=== PATIENT | male | born 1935 | race Caucasian/White ===

== ENCOUNTER → 2021-06-07 09:57 | Outpatient (BNVA) | payer MEDICARE, OTHER, SELFPAY | PROVIDERS: PCP Internal Medicine; Visit Provider Urology | DX: C61 Malignant neoplasm of prostate (principal) | CPT/HCPCS: 99202 ==

== ENCOUNTER → 2021-08-29 10:45 | Outpatient (REF) | payer MEDICARE, OTHER, SELFPAY ==
--- NOTE | ~2021-08-29 | NM_ITS ---
EXAMINATION: NM BONE SCAN OF THE WHOLE BODY CLINICAL INFORMATION: Malignant neoplasm of the prostate. COMPARISON: There are no studies to compare. TECHNIQUE: Multiple gamma scintillation camera images of the whole body were performed 2.5 hours following the intravenous administration of 30 mCi Tc-99m MDP. FINDINGS: In the head, unremarkable. In the thoracic cage and upper extremities, there is some uptake in the elbows as well as the wrist bones and phalangeal regions which is likely degenerative in nature. In the spine, there is some uptake which is mild at D9 near the costovertebral junction posterior. There is also uptake at T12-L1 and L1-L2 as well as L3-L4. Scoliosis is noted. In the pelvis, unremarkable. In the lower extremities, there is some uptake about the right greater than left knee. There are knee prostheses here. Uptake around the central component of the tibial region, most noted on the right. More superior uptake may be degeneration at the patellofemoral articulation. There is uptake in the tarsal bones laterally of the right foot. No other definite bony abnormalities are noted. The urinary bladder and faint visualization of both kidneys is noted. NM/NM bone scan whole body IMPRESSION: No convincing scintigraphic evidence metastatic disease. There are no other films to compare. Uptake as described in the lumbar greater than thoracic spine may well be degenerative in nature. Recommend plain films to correlate. Otherwise, some uptake about the right knee, and note is made of uptake occurring around the tibial component of the right knee prosthesis. An element of loosening or infection cannot be excluded. Intense uptake in the tarsal region of the right foot. Correlation recommended clinically. Consider plain films here as well.
== END ==
LOC: HO.NUCMED 10:45
PROVIDERS: Visit Provider Urology
DX: C61 Malignant neoplasm of prostate (principal); C79.51 Secondary malignant neoplasm of bone
CPT/HCPCS: 78306; A9503

== ENCOUNTER → 2021-08-30 10:31 | Outpatient (BNVA) | payer MEDICARE, OTHER, SELFPAY | PROVIDERS: PCP Family Medicine; Visit Provider Urology | DX: C61 Malignant neoplasm of prostate (principal) | CPT/HCPCS: Q3014 ==

== ENCOUNTER → 2021-12-20 09:46 | Outpatient (BNVA) | payer MEDICARE, OTHER, SELFPAY | PROVIDERS: PCP Internal Medicine; Visit Provider Urology | DX: C61 Malignant neoplasm of prostate (principal) | CPT/HCPCS: Q3014 ==

== ENCOUNTER → 2022-05-11 11:18 | Outpatient (BNVA) | payer MEDICARE, OTHER, SELFPAY | PROVIDERS: PCP Internal Medicine; Visit Provider Urology | DX: C61 Malignant neoplasm of prostate (principal); N40.1 Benign prostatic hyperplasia with lower urinary tract symptoms; R35.1 Nocturia; R35.0 Frequency of micturition | CPT/HCPCS: Q3014 ==

== ENCOUNTER → 2022-06-20 15:25 | Outpatient (BNVA) | payer MEDICARE, OTHER, SELFPAY | PROVIDERS: PCP Internal Medicine; Visit Provider Urology | DX: C61 Malignant neoplasm of prostate (principal); N40.1 Benign prostatic hyperplasia with lower urinary tract symptoms; Z79.899 Other long term (current) drug therapy; N13.8 Other obstructive and reflux uropathy | CPT/HCPCS: 99212 ==

== ENCOUNTER 2023-03-29 09:48 | Outpatient (AMB) | payer MEDICARE, OTHER, SELFPAY ==
--- NOTE | 2023-03-29 09:55 | A.OFFVIS_ITS ---
Intake Intake Visit Reasons: 6m/PSA Intake Note: Patient is Present for Follow Up PSA Urology Medication: Finasteride Antibiotic Allergies:None Blood Thinners: None PSA: 03/20/2023 10.10 Allergies No Known Allergies Allergy (Verified 12/18/21 10:13) HPI HPI Comments History of Present Illness Details Mr Cowan is a very pleasant male. He is a patient of Dr Jones. He is seen for the following urologic conditions. - prostate cancer Slow rise in PSA Known prostate cancer Plan bone scan - last performed August 2021 Discussed possible 18 month course of GnRH Progressive urinary symptoms - Nocturia with postvoid dribbling Continue terazosin 5 mg PSA 05/09 20 MRI - 1.4 cm PI-RADS 4 posterolateral periph eral zone midgland and apex with deformation of contour on left. - 97 g prostate Prostate cancer:? Diagnosed 2007 [place] 3 + 3, repeat biopsy 03/29 cores ? Prostate cancer was diagnosed?[address] Abrams.? Diagnosis was reached by?needle biopsy, for elevated PSA, PSA at diagnosis 10.75, size at TRUS 100cc ? The [place] grade is?3+3 = 6, 03/29 core 2007 left mid gland ?3+3 = 6 03/29 cores 08/2012, left mid gland lateral ? TNM Classification of Malignant Tumours (TNM)?T1c.? The D'Jacob (NCCN) risk category is?Intermediate Risk (PSA 10-20, Gl 7, T2) ? Initial therapy included?Primary treatment - Observation ? Recent labs included?a testosterone 12/31 14 ?07/02 - a PSA (prostate-specific antigen) 7.1, 02/01 6.1 F 19%, 08/02 5.6, 02/02 7.3, 06/06 21, 08/06 10.5, 01/06 7.3, 05/10 8.5, 04/10 10.1 Imaging - 09/06 bone scan no evidence of disease ? Therapeutic plan:? - remain on finasteride [facility] Medical History Dysuria Chronic back pain Coronary artery disease OA (osteoarthritis) GERD (gastroesophageal reflux disease) Straining to void Benign prostatic hyperplasia with lower urinary tract symptoms H/O urinary retention Surgical History History of surgery Review of Systems Const Denies chills and Denies fever(s) Card Reports no additional complaints and Denies syncope Resp Denies cough GI Denies abdominal pain and Denies heartburn Reports as per HPI and Denies change in libido Neuro Denies syncope Psych Denies change in libido Endo Denies change in libido Physical Exam Const General: cooperative, healthy appearing, comfortable and no acute distress Orientation/consciousness: patient oriented x3 HEENT Face and sinus: Yes normal facial exam Mouth: moist mucous membranes Neck Neck: Yes normal visual inspection, Yes full ROM and Yes trachea midline Chest Chest palpation & inspection: normal inspection of the chest Resp Effort & Inspection: normal respiratory effort, able to speak in complete sentences and no respiratory distress GI Inspection: Yes normal to inspection Back/Spine/Pelvis Cervical Spine: normal cervical lordosis Thoracic/Lumbar Spine: thoracic and lumbar spine normal to inspection Skin General skin exam: no rashes or lesions noted Neuro General: patient oriented x3, gait normal, tone normal and moves all extremities Extrem General: Yes normal to inspection and Yes capillary refill normal Assessment & Plan Assessment & Plan (1) Benign prostatic hyperplasia with lower urinary tract symptoms: Code(s): N40.1 - Benign prostatic hyperplasia with lower urinary tract symptoms (2) Prostate cancer: Code(s): C61 - Malignant neoplasm of prostate Plan Bone scan Four week tele visit Possible plan for GnRH Orders: Orders NM bone scan whole body Today C61 - Malignant neoplasm of prostate, C79.51 - Secondary malignant neoplasm of bone Patient Instructions: Imaging studies, laboratory and physical exam results were discussed and reviewed in detail. No major barriers to patient understanding were identified. An opportunity to ask questions regarding the treatment plan was provided. All questions were answered. The patient expressed understanding and agreement with the above treatment plan. The patient is aware they should contact our office by phone for worsening of their current condition or the appearance of new urologic symptoms. Compliance is encouraged with any medications and followup testing that is ordered. It is a privilege to participate in the urologic care of your patient. If you have any questions or concerns regarding treatment for the above conditions, or other urologic issues, please do not hesitate to contact me. The office telephone contact is [phone]. This note is constructed using voice recognition software. While every effort has been made to ensure accuracy structures technician errors may have been included. Yours sincerely, Dr Omega Martins MD, KAMERON [facility] - Urology Providers of Expert, Compassionate Care for the Genitourinary System Coding Level of Care Code Est Pt Level 4 (48835) Diagnoses Benign prostatic hyperplasia with lower urinary tract symptoms N40.1 Prostate cancer C61
== END 2023-03-29 10:22 | disposition home or self-care (01) ==
PROVIDERS: PCP Internal Medicine; Visit Provider Urology
DX: N40.1 Benign prostatic hyperplasia with lower urinary tract symptoms (principal); C61 Malignant neoplasm of prostate
CPT/HCPCS: 99214

== ENCOUNTER → 2023-03-29 09:48 | Outpatient (BNVA) | payer MEDICARE, OTHER, SELFPAY | PROVIDERS: PCP Internal Medicine; Visit Provider Urology | DX: N40.1 Benign prostatic hyperplasia with lower urinary tract symptoms (principal); R35.1 Nocturia; C61 Malignant neoplasm of prostate; Z79.899 Other long term (current) drug therapy | CPT/HCPCS: 99212 ==

== ENCOUNTER → 2023-05-10 09:39 | Outpatient (REF) | payer MEDICARE, OTHER, SELFPAY ==
--- NOTE | ~2023-05-10 | NM_ITS ---
EXAMINATION: NM BONE SCAN OF THE WHOLE BODY CLINICAL INFORMATION: Secondary malignant neoplasm of bone. COMPARISON: Bone scan 08/29/2021. TECHNIQUE: Multiple gamma scintillation camera images of the whole body were performed 2.5 hours following the intravenous administration of 28 mCi Tc-99m MDP. FINDINGS: In the head, no abnormal activity seen in the skull or the calvarium. In the thoracic cage and upper extremities, no abnormal activity seen in the thoracic cage. There is mild activity seen in bilateral elbows, greater on the left than the right. Mild increased activity is also visualized in bilateral wrists bones. There is solitary lymph node activity seen medial to the right elbow joint, likely secondary to isotropic extravasation at the injection site, right wrist. In the spine, mild activity is seen in T9, T12-L1, L1-L2 and L2-L4 endplates likely related to degenerative arthritis. There is mild levoscoliosis of dorsolumbar spine. In the pelvis, no abnormal activity seen. In the lower extremities, there is bilateral knee prosthesis activity, slightly greater in the right knee, secondary to knee prosthesis. [id number]-[id number] metabolic activity seen in the right mid tarsal bone. It is stable compared to last bone scan. No other definite bony abnormalities are noted. The urinary bladder and faint visualization of both kidneys are noted. NM/NM bone scan whole body IMPRESSION: Degenerative arthritic changes throughout the lower dorsal and lumbar spine including bilateral elbow joints, right wrist and right tarsal bone. There is no suspicion for any new or metastatic bone activity at this time. Moderate increased activity of right knee prosthesis compared to left knee likely secondary to increased bone activity from prosthesis in the proximal tibia. However, it is stable compared to last study from 08/29/2021.
== END ==
LOC: HO.NUCMED 09:39
PROVIDERS: Visit Provider Urology
DX: C61 Malignant neoplasm of prostate (principal); C79.51 Secondary malignant neoplasm of bone
CPT/HCPCS: 78306; A9503

== ENCOUNTER 2023-05-17 08:09 | Outpatient (AMB) | payer MEDICARE, OTHER, SELFPAY ==
--- NOTE | 2023-05-17 08:09 | A.OFFVIS_ITS ---
Intake Intake Visit Reasons: 1M Bone Scan(set)Confirmed Intake Note: Patient presents today for a telehealth follow-up Meds- Finasteride Allergies to Antibiotic- No Known Allergies Blood Thinner- None Baton Twirler Required: No Allergies No Known Allergies Allergy (Verified 05/17/23 08:11) HPI HPI Comments History of Present Illness Details Mr Cowan is a very pleasant male. He is a patient of Dr Jones. He is seen for the following urologic conditions. - prostate cancer Telemedicine Evaluation 15 min Consultation Doximity Juanjo Video attempted Discussed bone scan result Recent diagnosis of squamous cell carcinoma Recent bone scan negative. Positive for arthritis. Current PSA 10 Six-month follow-up PSA Slow rise in PSA Known prostate cancer Discussed possible 18 month course of GnRH Progressive urinary symptoms - Nocturia with postvoid dribbling Continue terazosin 5 mg PSA 05/09 20 MRI - 1.4 cm PI-RADS 4 posterolateral periph eral zone midgland and apex with deformation of contour on left. - 97 g prostate Prostate cancer:? Diagnosed 2007 [place] 3 + 3, repeat biopsy 03/29 cores ? Prostate cancer was diagnosed?[address] Abrams.? Diagnosis was reached by?needle biopsy, for elevated PSA, PSA at diagnosis 10.75, size at TRUS 100cc ? The [place] grade is?3+3 = 6, 03/29 core 2007 left mid gland ?3+3 = 6 03/29 cores 08/2012, left mid gland lateral ? TNM Classification of Malignant Tumours (TNM)?T1c.? The D'Jacob (NCCN) risk category is?Intermediate Risk (PSA 10-20, Gl 7, T2) ? Initial therapy included?Primary treatment - Observation ? Recent labs included?a testosterone 12/31 14 ?07/02 - a PSA (prostate-specific antigen) 7.1, 02/01 6.1 F 19%, 08/02 5.6, 02/02 7.3, 06/06 21, 08/06 10.5, 01/06 7.3, 05/10 8.5, 04/10 10.1 Imaging - 09/06 bone scan no evidence of disease - 04/10 bone scan positive for arthritis ? Therapeutic plan:? - remain on finasteride [facility] Medical History Dysuria Chronic back pain Coronary artery disease OA (osteoarthritis) GERD (gastroesophageal reflux disease) Straining to void Benign prostatic hyperplasia with lower urinary tract symptoms H/O urinary retention Surgical History History of surgery Review of Systems Const All systems reviewed & are unremarkable except as noted in HPI and below Reports no additional complaints Resp Reports no additional complaints GI Reports no additional complaints Reports as per HPI Musc Reports no additional complaints Physical Exam Telemedicine evaluation Appropriate responses Regular breathing rate and rhythm HEENT Head: Yes normal to inspection Ears: hearing grossly normal bilaterally Eyes General: appearance normal, both eyes and all related structures Neck Neck: Yes normal visual inspection Chest Chest palpation & inspection: normal inspection of the chest Resp Effort & Inspection: normal respiratory effort and able to speak in complete sentences Assessment & Plan Assessment & Plan (1) Prostate cancer: Code(s): C61 - Malignant neoplasm of prostate (2) Benign prostatic hyperplasia with lower urinary tract symptoms: Code(s): N40.1 - Benign prostatic hyperplasia with lower urinary tract symptoms Plan Six-month follow-up Orders: Orders PSA,Total (Free>4and<10) 6 Months C61 - Malignant neoplasm of prostate Patient Instructions: Imaging studies, laboratory and physical exam results were discussed and reviewed in detail. No major barriers to patient understanding were identified. An opportunity to ask questions regarding the treatment plan was provided. All questions were answered. The patient expressed understanding and agreement with the above treatment plan. The patient is aware they should contact our office by phone for worsening of their current condition or the appearance of new urologic symptoms. Compliance is encouraged with any medications and followup testing that is ordered. It is a privilege to participate in the urologic care of your patient. If you have any questions or concerns regarding treatment for the above conditions, or other urologic issues, please do not hesitate to contact me. The office telephone contact is [phone]. This note is constructed using voice recognition software. While every effort has been made to ensure accuracy grant coordinator errors may have been included. Yours sincerely, Dr Omega Martins MD, KAMERON [facility] - Urology Providers of Expert, Compassionate Care for the Genitourinary System Telehealth Telehealth Location of provider rendering services: practice address Location of patient: address on file Patient Identification confirmed using: Name, : Yes Telehealth method: video Patient verbally consented to treatment: Yes Patient verbally consented to billing insurance company: Yes Patient informed of any privacy concerns related to visit: Yes Coding Level of Care Code Tele Est Pt Level 3 (05367) Diagnoses Prostate cancer C61 Benign prostatic hyperplasia with lower urinary tract symptoms N40.1
== END 2023-05-17 09:21 | disposition home or self-care (01) ==
LOC: HO.HUSH 08:09
PROVIDERS: PCP Internal Medicine; Visit Provider Urology
DX: C61 Malignant neoplasm of prostate (principal); N40.1 Benign prostatic hyperplasia with lower urinary tract symptoms
CPT/HCPCS: 99213

== ENCOUNTER → 2023-05-17 08:09 | Outpatient (BNVA) | payer MEDICARE, OTHER, SELFPAY | PROVIDERS: PCP Internal Medicine; Visit Provider Urology ==

== ENCOUNTER 2023-11-05 09:26 | Outpatient (REF) | payer MEDICARE, OTHER, SELFPAY ==
[2023-11-05 11:52] LABS: PSA,Total (Free>4and<10) 9.27 ng/mL (0.00-4.00)
[2023-11-07 11:03] LABS: Free Prostate Spec Ag 1.5 ng/mL; Percent Free Prostate Spec Ag 18 % (calc) (>25); Prostate Specific Ag Total 8.3 ng/mL (< OR = 4.0)
== END 2023-11-05 09:27 | disposition home or self-care (01) ==
LOC: HO.LAB 09:26
PROVIDERS: PCP Internal Medicine; Visit Provider Urology
DX: Z12.5 Encounter for screening for malignant neoplasm of prostate (principal); C61 Malignant neoplasm of prostate
CPT/HCPCS: 36415; 84153; 84154

== ENCOUNTER 2023-11-15 08:33 | Outpatient (AMB) | payer MEDICARE, OTHER, SELFPAY ==
--- NOTE | 2023-11-15 08:33 | MHC.OFFVIS ---
Intake Visit Reasons: 6m/PSA(set) Intake Note: Patient is present for 6m f/u PSA Urology Medication:FINASTERIDE Antibiotic Allergy:NONE Blood Thinner:NONE Reserve Officer Required: No Allergies No Known Allergies Allergy (Verified 11/15/23 08:34) HPI Comments Details: Mr Cowan is a very pleasant male. He is a patient of Dr Jones. He is seen for the following urologic conditions. - prostate cancer Six-month follow-up PSA Slow rise in PSA Known prostate cancer Discussed possible 18 month course of GnRH Now with progressive macular degeneration Discussed likelihood he will go blind before he does prostate cancer Progressive urinary symptoms - Nocturia with postvoid dribbling Continue terazosin 5 mg PSA 05/09 21, 11/08 8.3 18% MRI - 1.4 cm PI-RADS 4 posterolateral peripheral zone midgland and apex with deformation of contour on left. - 97 g prostate Prostate cancer:? Diagnosed 2007 [place] 3 + 3, repeat biopsy 03/29 cores ? Prostate cancer was diagnosed?[address] Abrams.? Diagnosis was reached by?needle biopsy, for elevated PSA, PSA at diagnosis 10.75, size at TRUS 100cc ? The [place] grade is?3+3 = 6, 03/29 core 2007 left mid gland ?3+3 = 6 03/29 cores 08/2012, left mid gland lateral ? TNM Classification of Malignant Tumours (TNM)?T1c.? The D'Jacob (NCCN) risk category is?Intermediate Risk (PSA 10-20, Gl 7, T2) ? Initial therapy included?Primary treatment - Observation ? Recent labs included?a testosterone 12/31 14 ?07/02 - a PSA (prostate-specific antigen) 7.1, 02/01 6.1 F 19%, 08/02 5.6, 02/02 7.3, 06/06 21, 08/06 10.5, 01/06 7.3, 05/10 8.5, 04/10 10.1 Imaging - 05/11 Recent bone scan negative. Positive for arthritis. - 09/06 bone scan no evidence of disease - 04/10 bone scan positive for arthritis ? Therapeutic plan:? - remain on finasteride PFSH Medical History Dysuria Chronic back pain Coronary artery disease OA (osteoarthritis) GERD (gastroesophageal reflux disease) Straining to void Benign prostatic hyperplasia with lower urinary tract symptoms H/O urinary retention Surgical History History of surgery Review of Systems Const Denies chills and Denies fever(s) Card Reports no additional complaints and Denies syncope Resp Denies cough GI Denies abdominal pain and Denies heartburn Reports as per HPI and Denies change in libido Neuro Denies syncope Psych Denies change in libido Endo Denies change in libido Physical Exam Const General: cooperative, healthy appearing, comfortable and no acute distress Orientation/consciousness: patient oriented x3 HEENT Face and sinus: Yes normal facial exam Mouth: moist mucous membranes Neck Neck: Yes normal visual inspection, Yes full ROM and Yes trachea midline Chest Chest palpation & inspection: normal inspection of the chest Resp Effort & Inspection: normal respiratory effort, able to speak in complete sentences and no respiratory distress GI Inspection: Yes normal to inspection Back/Spine/Pelvis Cervical Spine: normal cervical lordosis Thoracic/Lumbar Spine: thoracic and lumbar spine normal to inspection Skin General skin exam: no rashes or lesions noted Neuro General: patient oriented x3, gait normal, tone normal and moves all extremities Extrem General: Yes normal to inspection and Yes capillary refill normal Results AMB Urinalysis, Automated UA Leukoctes 0 Familia/uL Last Edit by XIOMARA Jay on 11/15/23 08:56 UA Nitrite Negative Last Edit by XIOMARA Jay on 11/15/23 08:56 UA Urobilinogen 0.2 mg/dL Last Edit by XIOMARA Jay on 11/15/23 08:56 UA Protein 15 mg/dL Last Edit by XIOMARA Jay on 11/15/23 08:56 UA pH 6.0 Last Edit by XIOMARA Jay on 11/15/23 08:56 UA Blood 0 Rip/uL Last Edit by XIOMARA Jay on 11/15/23 08:56 UA Specific [place] 1.030 Last Edit by XIOMARA Jay on 11/15/23 08:56 UA Ketone Negative Last Edit by XIOMARA Jay on 11/15/23 08:56 UA Bilirubin 0 mg/dL Last Edit by XIOMARA Jay on 11/15/23 08:56 UA Glucose 0 mg/dL Last Edit by XIOMARA Jay on 11/15/23 08:56 Assessment & Plan Assessment & Plan (1) Nocturia more than twice per night: Code(s): R35.1 - Nocturia Category: Medical (2) Prostate cancer: Code(s): C61 - Malignant neoplasm of prostate Category: Medical Plan Six-month follow-up PSA Orders: Orders PSA,Total (Free>4and<10) 6 Months C61 - Malignant neoplasm of prostate AMB Urinalysis Automated Today Z13.9 - Encounter for screening, unspecified Patient Instructions: Imaging studies, laboratory and physical exam results were discussed and reviewed in detail. No major barriers to patient understanding were identified. An opportunity to ask questions regarding the treatment plan was provided. All questions were answered. The patient expressed understanding and agreement with the above treatment plan. The patient is aware they should contact our office by phone for worsening of their current condition or the appearance of new urologic symptoms. Compliance is encouraged with any medications and followup testing that is ordered. It is a privilege to participate in the urologic care of your patient. If you have any questions or concerns regarding treatment for the above conditions, or other urologic issues, please do not hesitate to contact me. The office telephone contact is [phone]. This note is constructed using voice recognition software. While every effort has been made to ensure accuracy sales floor manager errors may have been included. Yours sincerely, Dr Omega Martins MD, KAMERON [facility] - Urology Providers of Expert, Compassionate Care for the Genitourinary System Coding Level of Care Code Est Pt Level 3 (75551) Diagnoses Nocturia more than twice per night R35.1 Prostate cancer C61
== END 2023-11-15 09:28 | disposition home or self-care (01) ==
PROVIDERS: PCP Internal Medicine; Visit Provider Urology
DX: R35.1 Nocturia (principal); C61 Malignant neoplasm of prostate; Z13.9 Encounter for screening, unspecified
CPT/HCPCS: 99213

== ENCOUNTER → 2023-11-15 08:33 | Outpatient (BNVA) | payer MEDICARE, OTHER, SELFPAY | PROVIDERS: PCP Internal Medicine; Visit Provider Urology | DX: C61 Malignant neoplasm of prostate (principal); R35.1 Nocturia | CPT/HCPCS: 81003; 99212 ==

== ENCOUNTER 2024-06-19 12:26 | Outpatient (REF) | payer MEDICARE, OTHER, SELFPAY ==
[2024-06-19 13:59] LABS: PSA,Total (Free>4and<10) 8.59 ng/mL (0.00-4.00)
[2024-06-22 10:09] LABS: Free Prostate Spec Ag 1.6 ng/mL; Percent Free Prostate Spec Ag 19 % (calc) (>25); Prostate Specific Ag Total 8.4 ng/mL (< OR = 4.0)
== END 2024-06-19 12:27 | disposition home or self-care (01) ==
LOC: HO.LAB 12:26
PROVIDERS: PCP Internal Medicine; Visit Provider Urology
DX: C61 Malignant neoplasm of prostate (principal); Z12.5 Encounter for screening for malignant neoplasm of prostate
CPT/HCPCS: 36415; 84153; 84154

== ENCOUNTER 2024-07-16 09:58 | Outpatient (AMB) | payer MEDICARE, OTHER, SELFPAY ==
--- NOTE | 2024-07-16 09:59 | A.OFFVIS_ITS ---
Intake Visit Reasons: follow up/PSA Intake Note: Patient is present for a follow up/ PSA Urology Medication:FINASTERIDE Antibiotic Allergy:NONE Blood Thinner:NONE Cylinder Press Feeder Required: No Allergies No Known Allergies Allergy (Verified 11/15/23 08:34) HPI Comments Details: Mr Cowan is a very pleasant male. He is a patient of Dr Jones. He is seen for the following urologic conditions. - prostate cancer Six-month follow-up PSA PSA 8.4 free PSA 19% - remains in target range Discussed possible 18 month course of GnRH Prior discussion regarding progressive macular degeneration Discussed likelihood he will go blind before he does prostate cancer Progressive urinary symptoms - Nocturia with postvoid dribbling Continue terazosin 5 mg PSA 05/09 21, 11/08 8.3 18%, 07/10 8.4 19% MRI - 1.4 cm PI-RADS 4 posterolateral peripheral zone midgland and apex with deformation of contour on left. - 97 g prostate Prostate cancer:? Diagnosed 2007 [place] 3 + 3, repeat biopsy 03/29 cores ? Prostate cancer was diagnosed?[address] Abrams.? Diagnosis was reached by?needle biopsy, for elevated PSA, PSA at diagn osis 10.75, size at TRUS 100cc ? The [place] grade is?3+3 = 6, 03/29 core 2007 left mid gland ?3+3 = 6 03/29 cores 08/2012, left mid gland lateral ? TNM Classification of Malignant Tumours (TNM)?T1c.? The D'Jacob (NCCN) risk category is?Intermediate Risk (PSA 10-20, Gl 7, T2) ? Initial therapy included?Primary treatment - Observation ? Recent labs included?a testosterone 12/31 14 ?07/02 - a PSA (prostate-specific antigen) 7.1, 02/01 6.1 F 19%, 08/02 5.6, 02/02 7.3, 06/06 21, 08/06 10.5, 01/06 7.3, 05/10 8.5, 04/10 10.1 Imaging - 05/11 Recent bone scan negative. Positive for arthritis. - 6/22 bone scan no evidence of disease - 04/10 bone scan positive for arthritis ? Therapeutic plan:? - remain on finasteride PFS Medical History Dysuria Chronic back pain Coronary artery disease OA (osteoarthritis) GERD (gastroesophageal reflux disease) Straining to void Benign prostatic hyperplasia with lower urinary tract symptoms H/O urinary retention Surgical History History of surgery Review of Systems Const Denies chills and Denies fever(s) Card Reports no additional complaints and Denies syncope Resp Denies cough GI Denies abdominal pain and Denies heartburn Reports as per HPI and Denies change in libido Neuro Denies syncope Psych Denies change in libido Endo Denies change in libido Physical Exam Const General: cooperative, healthy appearing, comfortable and no acute distress Orientation/consciousness: patient oriented x3 HEENT Face and sinus: Yes normal facial exam Mouth: moist mucous membranes Neck Neck: Yes normal visual inspection, Yes full ROM and Yes trachea midline Chest Chest palpation & inspection: normal inspection of the chest Resp Effort & Inspection: normal respiratory effort, able to speak in complete sentences and no respiratory distress GI Inspection: Yes normal to inspection Back/Spine/Pelvis Cervical Spine: normal cervical lordosis Thoracic/Lumbar Spine: thoracic and lumbar spine normal to inspection Skin General skin exam: no rashes or lesions noted Neuro General: patient oriented x3, gait normal, tone normal and moves all extremities Extrem General: Yes normal to inspection and Yes capillary refill normal Assessment & Plan Assessment & Plan (1) Prostate cancer: Code(s): C61 - Malignant neoplasm of prostate Category: Medical Plan Continue Q six-month surveillance Orders: Orders PSA,Total (Free>4and<10) 6 Months C61 - Malignant neoplasm of prostate Patient Instructions: This note is constructed using voice recognition software. While every effort has been made to ensure accuracy blocker automatic errors may have been included. Imaging studies, laboratory and physical exam results were discussed and reviewed in detail. No major barriers to patient understanding were identified. An opportunity to ask questions regarding the treatment plan was provided. All questions were answered. The patient expressed understanding and agreement with the above treatment plan. The patient is aware they should contact our office by phone for worsening of their current condition or the appearance of new urologic symptoms. Compliance is encouraged with any medications and followup testing that is ordered. It is a privilege to participate in the urologic care of your patient. If you have any questions or concerns regarding treatment for the above conditions, or other urologic issues, please do not hesitate to contact me. The office telephone contact is [phone]. Sincerely, Dr Omega Martins MD, KAMERON [facility] - Urology Compassionate Specialist Care for the Genitourinary System Coding Level of Care Code Est Pt Level 3 (06146) Complex EM visit Add On G2211 Diagnoses Prostate cancer C61
--- OUTSIDE RECORDS SUMMARY | 2024-07-16 11:09 | XMS_ITS | Continuity of Care Document ---
Author Name [facility] Organization [facility] Care Team Providers Care Gas Appliance Mechanic Name Role Phone [facility] Unavailable Unavailable Medications Combined list of outpatient medications from Department of Defense and Veterans Affairs facilities.Medications provided include 1) outpatient medications from the last 15 months, and 2) patient-reported medications. Medication Details Route Status Patient Instructions Prescription Expires Prescription Number Last Dispense Date Ordering Provider Order Date Order Qty Source AMLODIPINE BESYLATE (AMLODIPINE BESYLATE), 5 MG, TABLET, ORAL, [facility], 1000 ea. BOTTLE Active [id number] 4 2023 90 Pharmac y Data Transac tion Service Facilit y ATORVASTATI N CALCIUM (atorvastat in calcium), 40 MG, TABLET, ORAL, [facility], 90 ea. BOTTLE Active [id number] 4 2023 90 Pharmac y Data Transac tion Service Facilit y FINASTERIDE (FINASTERID E), 5MG, TABLET, ORAL, [facility], 90 ea. BOTTLE Active [id number] 4 2023 90 Pharmac y Data Transac tion Service Facilit y LORAZEPAM (lorazepam) , 0.5 MG, TABLET, ORAL, [facility], 100 ea. BOTTLE Active [id number] 2023 30 Pharmac y Data Transac tion Service Facilit y LORAZEPAM (lorazepam) , 0.5 MG, TABLET, ORAL, [facility], 100 ea. BOTTLE Active [id number] 4 2023 30 Pharmac y Data Transac tion Service Facilit y METOPROLOL TARTRATE (metoprolol tartrate), 25 MG, TABLET, ORAL, ADVAGEN PHARMA, 500 ea. BOTTLE Active [id number] 4 2023 180 Pharmac y Data Transac tion Service Facilit y VALSARTAN (valsartan) , 160 MG, TABLET, ORAL, [facility], 90 ea. BOTTLE Active [id number] 4 2023 90 Pharmac y Data Transac tion Service Facilit y ZOLPIDEM TARTRATE (ZOLPIDEM TARTRATE), 5MG, TABLET, ORAL, [facility], 100 ea. BOTTLE Active [id number] 4 2023 28 Pharmac y Data Transac tion Service Facilit y Social History Combined list of available smoking, tobacco, and other social history from Department of Defense and Veterans Affairs facilities. Social History Type Response Date Comment [facility] e This section is an empty social history section. DoD
== END 2024-07-16 10:34 | disposition home or self-care (01) ==
LOC: HO.HUSH 09:58
PROVIDERS: PCP Internal Medicine; Visit Provider Urology
DX: C61 Malignant neoplasm of prostate (principal)
CPT/HCPCS: 99213; G2211

== ENCOUNTER → 2024-07-16 09:58 | Outpatient (BNVA) | payer MEDICARE, OTHER, SELFPAY | PROVIDERS: PCP Internal Medicine; Visit Provider Urology | DX: C61 Malignant neoplasm of prostate (principal) | CPT/HCPCS: 99212 ==

== ENCOUNTER 2025-02-01 11:53 | Outpatient (REF) | payer MEDICARE, OTHER, SELFPAY ==
[2025-02-01 13:48] LABS: PSA,Total (Free>4and<10) 9.13 ng/mL (0.00-4.00)
[2025-02-03 13:23] LABS: Free Prostate Spec Ag 1.5 ng/mL; Percent Free Prostate Spec Ag 16 % (calc) (>25)
== END 2025-02-01 11:54 | disposition home or self-care (01) ==
LOC: HO.LAB 11:53
PROVIDERS: PCP Internal Medicine; Visit Provider Urology
DX: C61 Malignant neoplasm of prostate (principal); Z12.5 Encounter for screening for malignant neoplasm of prostate
CPT/HCPCS: 36415; 84153; 84154

== ENCOUNTER 2025-02-04 09:13 | Outpatient (AMB) | payer MEDICARE, OTHER, SELFPAY ==
--- NOTE | 2025-02-04 09:13 | A.OFFVIS_ITS ---
Intake Visit Reasons: 6m/PSA Intake Note: Patient is present for a 6 MO follow up Urology Medication:FINASTERIDE Antibiotic Allergy:NONE Blood Thinner:NONE Labs done 02/01/25 :Total PSA 9.13 Menagerie Superintendent Required: No Accompanied by: Self / Same As Patient Allergies No Known Allergies Allergy (Verified 02/04/25 09:15) HPI Comments Details: Mr Cowan is a very pleasant male. He is a patient of Dr Jones. He is seen for the following urologic conditions. - prostate cancer Telemedicine Evaluation 15 min Consultation [email or web address] Juanjo Video Six-month follow-up PSA - remains under 10 His macular degeneration is now affected his ability to drive Recent diagnosis of CHF Prostate is maintaining stability Continue six-month follow-up Prior discussion regarding progressive macular degeneration Discussed likelihood he will go blind before he does prostate cancer Progressive urinary symptoms - Nocturia with postvoid dribbling Continue terazosin 5 mg PSA 05/09 21, 11/08 8.3 18%, 07/10 8.4 19%, 02/09 9.2 16% MRI - 1.4 cm PI-RADS 4 posterolateral peripheral zone midgland and apex with deformation of contour on left. - 97 g prostate Prostate cancer:? Diagnosed 2007 Darwin 3 + 3, repeat biopsy 03/29 cores ? Prostate cancer was diagnosed?[address] Abrams[address] Diagnosis was reached by?needle biopsy, for elevated PSA, PSA at diagnosis 10.75, size at TRUS 100cc ? The Darwin grade is?3+3 = 6, 03/29 core 2007 left mid gland ?3+3 = 6 03/29 cores 08/2012, left mid gland lateral ? TNM Classification of Malignant Tumours (TNM)?T1c.? The D'Jacob (NCCN) risk category is?Intermediate Risk (PSA 10-20, Gl 7, T2) ? Initial therapy included?Primary treatment - Observation ? Recent labs included?a testosterone 12/31 14 ?07/02 - a PSA (prostate-specific antigen) 7.1, 02/01 6.1 F 19%, 08/02 5.6, 02/02 7.3, 06/06 21, 08/06 10.5, 01/06 7.3, 05/10 8.5, 04/10 10.1 Imaging - 05/11 Recent bone scan negative. Positive for arthritis. - 09/06 bone scan no evidence of disease - 04/10 bone scan positive for arthritis ? Therapeutic plan:? - remain on finasteride PFSH Medical History Dysuria Chronic back pain Coronary artery disease OA (osteoarthritis) GERD (gastroesophageal reflux disease) Straining to void Benign prostatic hyperplasia with lower urinary tract symptoms H/O urinary retention Surgical History History of surgery Review of Systems Const All systems reviewed & are unremarkable except as noted in HPI and below Reports no additional complaints Resp Reports no additional complaints GI Reports no additional complaints Reports as per HPI Musc Reports no additional complaints Physical Exam Telemedicine evaluation Appropriate responses Regular breathing rate and rhythm HEENT Head: Yes normal to inspection Ears: hearing grossly normal bilaterally Eyes General: appearance normal, both eyes and all related structures Neck Neck: Yes normal visual inspection Chest Chest palpation & inspection: normal inspection of the chest Resp Effort & Inspection: normal respiratory effort and able to speak in complete sentences Telehealth Telehealth Telehealth Platform: [email or web address] Location of provider rendering services: practice address Location of patient: address on file Patient Identification confirmed using: Name, : Yes Telehealth method: video Patient verbally consented to treatment: Yes Patient verbally consented to billing insurance company: Yes Patient informed of any privacy concerns related to visit: Yes Minutes spent on Phone/Video with Pt.: 15 Assessment & Plan Assessment & Plan (1) Prostate cancer: Code(s): C61 - Malignant neoplasm of prostate Category: Medical (2) Benign prostatic hyperplasia with lower urinary tract symptoms: Code(s): N40.1 - Benign prostatic hyperplasia with lower urinary tract symptoms Category: Medical (3) Nocturia more than twice per night: Code(s): R35.1 - Nocturia Category: Medical Plan Six-month follow-up repeat lab Orders: Orders PSA,Total (Free>4and<10) 6 Months C61 - Malignant neoplasm of prostate Medications: Refilled finasteride 5 mg PO DAILY 90 tabs 1RF Patient Instructions: This note is constructed using voice recognition software. While every effort has been made to ensure accuracy shell sorter errors may have been included. Imaging studies, laboratory and physical exam results were discussed and reviewed in detail. No major barriers to patient understanding were identified. An opportunity to ask questions regarding the treatment plan was provided. All questions were answered. The patient expressed understanding and agreement with the above treatment plan. The patient is aware they should contact our office by phone for worsening of their current condition or the appearance of new urologic symptoms. Compliance is encouraged with any medications and followup testing that is ordered. It is a privilege to participate in the urologic care of your patient. If you jean baptiste ve any questions or concerns regarding treatment for the above conditions, or other urologic issues, please do not hesitate to contact me. The office telephone contact is [phone]. Sincerely, Dr Omega Martins MD, [facility] - Urology Compassionate Specialist Care for the Genitourinary System Coding Level of Care Code Tele Est Pt Level 3 (25589) Complex EM visit Add On G2211 Diagnoses Prostate cancer C61 Benign prostatic hyperplasia with lower urinary tract symptoms N40.1 Nocturia more than twice per night R35.1
--- OUTSIDE RECORDS SUMMARY | 2025-02-04 11:51 | XMS_ITS | Encounter Summary ---
Author Organization [facility] Address [address] [place] [address] [place] [address] Phone Care Team Providers Care Welder Fitter Arc Name Role Phone Elliott Ureña MD Primary Care Provider [phone] Marshall Jones MD Primary Care Provider [phone] Marshall Jones MD Primary Care Provider [phone] Encounter Details Date Type Department Care Team (Latest Contact Info) Description 11/29/2020 Transcribe Orders [address] [place] [address] NiranjanElliott crain MD [address] [facility] [address] [place] [address] [email or web address] Fatigue, unspecified type (Primary Dx); Hypertension, unspecified type Social History Tobacco Use Types Packs/Day Years Used Date Smoking Tobacco: Never Smokeless Tobacco: Never Alcohol Use Standard Drinks/Week Comments Yes 0 (1 standard drink = 0.6 oz pur e alcohol) Sex and Gender Information Value Date Recorded Sex Assigned at Not on file Legal Sex Male 4:36 AM EST Gender Identity Not on file Sexual Orientation Not on file documented as of this encounter Plan of Treatment Not on file documented as of this encounter Results * CBC and differential (11/29/2020 1:11 PM EDT) WBC 6.51 4.00 - 11.00 K/uL [facility] RBC 5.12 3.90 - 5.69 M/uL [facility] HGB 13.9 12.4 - 17.3 g/dL [facility] HCT 43.0 37.0 - 51.0 % [facility] PLT 235 140 - 430 K/uL [facility] MCV 84.0 78.0 - 97.0 fL [facility] MCH 27.1 25.0 - 33.0 pg [facility] MCHC 32.3 32.0 - 36.0 g/dL [facility] RDW 13.8 11.0 - 15.0 % [facility] MPV 10.0 8.4 - 12.8 fl [facility] NRBC 0.00 0 /100 WBCs [facility] ABSOLUTE NRBC 0.00 0 K/uL [facility] DIFF METHOD Auto [facility] NEUTS 64.5 43.0 - 75.0 % [facility] LYMPHS 25.0 18.2 - 47.4 % [facility] MONOS 7.2 4.00 - 11.00 % [facility] EOS 2.2 0.0 - 8.0 % [facility] BASOS 0.8 0.0 - 2.0 % [facility] Granulocytes, immature (%) 0.3 0.0 - 0.9 % [facility] ABSOLUTE NEUTS 4.20 1.80 - 7.70 K/uL [facility] ABSOLUTE LYMPHS 1.63 1.00 - 3.10 K/uL [facility] ABSOLUTE MONOS 0.47 0.20 - 0.80 K/uL [facility] ABSOLUTE EOS 0.14 0.00 - 0.80 K/uL [facility] ABSOLUTE BASOS 0.05 0.00 - 0.09 K/uL [facility] Granulocytes, immature 0.02 0.00 - 0.05 K/uL [facility] Blood 11/29/2020 1:11 PM EDT 11/29/2020 1:31 PM EDT us Elliott Ureña MD LAB BLOOD BKR ORDERABLES Final Result [facility] [address] [place] [address] * TSH with reflex (11/29/2020 1:11 PM EDT) TSH 2.02 0.27 - 4.20 uIU/mL [facility] Blood 11/29/2020 1:11 PM EDT 11/29/2020 1:31 PM EDT Elliott Ureña MD LAB BLOOD BKR ORDERABLES Final Result Performing Organization Address City/[facility]/ZIP Co de Phone Number [address] [address] * (ABNORMAL) Lipid panel (11/29/2020 1:11 PM EDT) HDL 37 mg/dL [facility] Comment: Interpretation <40 mg/dL: Low HDL cholesterol (major risk factor for CHD) Greater than or equal to 60 mg/dL: High HDL cholesterol ( negative risk factor for CHD) HDL - cholesterol is affected by a number of factors, e.g. smoking, excerise, hormones, sex and age. CHOLESTEROL 103 0 - 240 mg/dL [facility] TRIGLYCERIDES 108 30 - 160 mg/dL [facility] LDL 44(L) 50 - 129 mg/dL [facility] Comment: LDL levels in terms of risk for coronary heart disease: <100 mg/dL: Optimal 100-129 mg/dL: Near or above optimal 130-159 mg/dL: Borderline high 160-189 mg/dL: High >190 mg/dL: Very High CARDIAC RISK RATIO 2.8(L) 3.4 - 5.0 C [facility] Blood 11/29/2020 1:11 PM EDT 11/29/2020 1:31 PM EDT Elliott Ureña MD LAB BLOOD BKR ORDERABLES Final Result Performing Organization Address [facility]/ZIP Co de Phone Number [address] [address] * (ABNORMAL) Comprehensive metabolic panel (11/29/2020 1:11 PM EDT) SODIUM 140 133 - 146 mmol/L [facility] POTASSIUM 4.6 3.3 - 5.1 mmol/L [facility] CHLORIDE 106 96 - 108 mmol/L [facility] CO2 22 21 - 35 mmol/L [facility] BUN 31(H) 6 - 19 mg/dL [facility] CREATININE 1.30 0.5 - 1.5 mg/dL [facility] GLUCOSE 100(H) 70 - 99 mg/dL [facility] ALBUMIN 4.5 3.9 - 4.8 g/dL [facility] TOTAL PROTEIN 7.3 6.5 - 8.0 g/dL [facility] CALCIUM 10.0 8.4 - 10.3 mg/dL [facility] ALKALINE PHOSPHATASE 90 39 - 117 U/L [facility] TOTAL BILIRUBIN 0.6 0.0 - 1.2 mg/dL [facility] AST 28 0 - 37 U/L [facility] ALT 21 0 - 40 U/L [facility] GLOBULIN 2.8 1 - 4.8 g/dL [facility] EGFR 50(L) >59 mL/min/1.7 3m2 [facility] Comment:Estimated glomerular filtration rate calculated using the CKD-EPI equation. ANION GAP 17 10 - 20 mmol/L [facility] Blood 11/29/2020 1:11 PM EDT 11/29/2020 1:31 PM EDT Elliott Ureña MD LAB BLOOD BKR ORDERABLES Final Result Performing Organization Address City/State/[facility] Co de Phone Number [facility] [address] [place] [address] documented in this encounter Visit Diagnoses Diagnosis Fatigue, unspecified type- Primary Hypertension, unspecified type documented in this encounter Care Teams Welder Fitter Arc Relationship Specialty Start Date End Date Elliott Ureña MD [address] [address] [address] [place] [address] [email or web address] PCP - General Internal Medicine 01/30/1811/16 Marshall Jones MD [address] [address] [address] [place] [id number] PCP - General Internal Medicine 12/01/21 10/23/22 Marshall Jones MD [address] [place] [address] PCP - General Internal Medicine 10/24/22 documented as of this encounter Additional Source Comments The information contained in this document represents components of the legal health record. It is not the complete legal health record.[facility]
--- OUTSIDE RECORDS SUMMARY | 2025-02-04 11:51 | XMS_ITS | Encounter Summary ---
Author Organization [facility] Address [address] [place] [address] [place] [address] Phone Care Team Providers Care E Commerce Manager Name Role Phone Elliott Ureña MD Primary Care Provider Marshall Jones MD Primary Care Provider [phone] Marshall Jones MD Primary Care Provider [phone] Encounter Details Date Type Department Care Team (Late st Contact Info) Description 08/04/2020 Ancillary Orders Virtual Department [address] [place] [address] Elliott Ureña MD [address] [facility] [address] [place] [address] [email or web address] Carotid stenosis, bilateral Social History Tobacco Use Types Packs/Day Years [...] documented as of this encounter Results * US Carotid Duplex Complete (Bilateral) (08/10/2020 1:41 PM EDT) Anatomical Region Laterality Modality Heart, Thoracic Vasculature, Neck Ultrasound 08/10/2020 2:03 PM EDT Impressions 08/10/2020 2:22 PM EDT 1. Fairly large amount of plaque within the right carotid bulb/proximal internal carotid artery with elevated velocity values consistent with a stenosis of Haydee 2 or greater than 70%. Probable mild progression from 09/04/2018. 2. Small amount of plaque on the left without evidence of hemodynamically significant stenosis. Narrative 08/10/2020 2:22 PM EDT HISTORY: Carotid stenosis, abnormal previous exam. COMPARISON: Carotid ultrasound 09/04/2018. CAROTID ULTRASOUND FINDINGS: RIGHT: Carotid artery morphology: Fairly large amount of mixed plaque within the bulb/proximal internal carotid artery. Narrowing of the diameter of the lumen may be greater than 70%. Calcified plaque extends into the proximal external carotid artery, as well. Peak systolic and diastolic velocity internal carotid artery: Systolic: 289.8 cm/sec, Diastolic: 49.3 cm/sec.. Both values are elevated. This compares with 165 cm per square and 36 cm/s, respectively, on 09/04/2018. Elevated peak systolic ratio. Vertebral artery: Normal antegrade flow. LEFT: Carotid artery morphology: Small amount of partially calcified plaque in the distal common carotid artery. Small-moderate amount of partially calcified plaque in the bulb/proximal internal carotid artery and proximal external carotid artery. Peak systolic and diastolic velocity internal carotid artery: Systolic: 93.4 cm/sec, Diastolic: 25.5 cm/sec. Both values are within normal limits and slightly lower than what was reported on 09/04/2018. Peak systolic ratio within normal limits. Vertebral artery: Normal antegrade flow. Any stenosis measurement is relative to the distal ICA diameters. Procedure Note Yariel Martino MD - 08/10/2020 HISTORY: Carotid stenosis, abnormal previous exam. COMPARISON: Carotid ultrasound 09/04/2018. CAROTID ULTRASOUND FINDINGS: RIGHT: Carotid artery morphology: Fairly large amount of mixed plaque within thebulb/proximal internal carotid artery. Narrowing of the diameter of thelumen may be greater than 70%. Calcified plaque extends into the proximalexternal carotid artery, as well. Peak systolic and diastolic velocity internal carotid artery: Systolic:289.8 cm/sec, Diastolic: 49.3 cm/sec.. Both values are elevated. Thiscompares with 165 cm per square and 36 cm/s, respectively, on 09/04/2018.Elevated peak systolic ratio. Vertebral artery: Normal antegrade flow. LEFT: Carotid artery morphology: Small amount of partially calcified plaque inthe distal common carotid artery. Small-moderate amount of partiallycalcified plaque in the bulb/proximal internal carotid artery and proximalexternal carotid artery. Peak systolic and diastolic velocity internal carotid artery: Systolic:93.4 cm/sec, Diastolic: 25.5 cm/sec. Both values are within normal limitsand slightly lower than what was reported on 09/04/2018. Peak systolicratio within normal limits. Vertebral artery: Normal antegrade flow. Any stenosis measurement is relative to the distal ICA diameters. IMPRESSION: 1. Fairly large amount of plaque within the right carotid bulb/proximalinternal carotid artery with elevated velocity values consistent with astenosis of Haydee 2 or greater than 70%. Probable mild progression from09/04/2018. 2. Small amount of plaque on the left without evidence of hemodynamicallysignificant stenosis. us Elliott Ureña MD [facility] Final Resul t documented in this encounter Visit Diagnoses Diagnosis Carotid stenosis, bilateral Occlusion and stenosis of carotid artery without mention of cerebral infarction Carotid stenosis, bilateral Occlusion and stenosis of carotid artery without mention of cerebral infarction documented in this encounter Care Teams E Commerce Manager Relationship Specialty Start Date End Date Elliott Ureña MD [address] [facility] [address] [place] [id number] [email or web address] PCP - General Internal Medicine 01/30/1811/16 Marshall Jones MD [address] [facility] [address] [place] [address] PCP - General Internal Medicine 12/01/21 10/23/22 Marshall Jones MD [address] [place] [id number] PCP - General Internal Medicine 10/24/22 documented as of this encounter Additional Source Comments The information contained in this document represents components of the legal health record. It is not the complete legal health record.[facility]
--- OUTSIDE RECORDS SUMMARY | 2025-02-04 11:52 | XMS_ITS | Encounter Summary ---
Author Organization Formerly [facility] Address [address] [place] [address] [place] [address] Phone Care Team Providers Care Automotive Sales Specialist Name Role Phone Elliott Ureña MD Primary Care Provider [phone] Marshall Jones MD Primary Care Provider [phone] Marshall Jones MD Primary Care Provider [phone] Encounter Details Date Type Department Care Team (Latest Contact Info) Description 05/11/2021 Transcribe Orders [address] [place] [address] NiranjanElliott crain MD 264 [facility] [address] [place] [address] [email or web address] Coronary artery disease, unspecified vessel or lesion type, unspecified whether angina present, unspecified whether [place] or transplanted heart (Primary Dx) Social History Tobacco Use Types Packs/Day Years [...] this encounter Results * CBC and differential (05/11/2021 9:19 AM EST) WBC 6.61 4.00 - 11.00 K/uL [facility] RBC 5.09 3.90 - 5.69 M/uL [facility] HGB 14.1 12.4 - 17.3 g/dL [facility] HCT 43.4 37.0 - 51.0 % [facility] PLT 221 140 - 430 K/uL [facility] MCV 85.3 78.0 - 97.0 fL [facility] MCH 27.7 25.0 - 33.0 pg [facility] MCHC 32.5 32.0 - 36.0 g/dL [facility] RDW 13.8 11.0 - 15.0 % [facility] MPV 9.8 8.4 - 12.8 fl [facility] NRBC 0.00 0 /100 WBCs [facility] ABSOLUTE NRBC 0.00 0 K/uL [facility] DIFF METHOD Auto [facility] NEUTS 61.7 43.0 - 75.0 % [facility] LYMPHS 24.7 18.2 - 47.4 % [facility] MONOS 8.3 4.00 - 11.00 % [facility] EOS 3.9 0.0 - 8.0 % [facility] BASOS 1.1 0.0 - 2.0 % [facility] Granulocytes, immature (%) 0.3 0.0 - 0.9 % [facility] ABSOLUTE NEUTS 4.08 1.80 - 7.70 K/uL [facility] ABSOLUTE LYMPHS 1.63 1.00 - 3.10 K/uL [facility] ABSOLUTE MONOS 0.55 0.20 - 0.80 K/uL [facility] ABSOLUTE EOS 0.26 0.00 - 0.80 K/uL [facility] ABSOLUTE BASOS 0.07 0.00 - 0.09 K/uL [facility] Granulocytes, immature 0.02 0.00 - 0.05 K/uL [facility] Blood 05/11/2021 9:19 AM EST 05/11/2021 9:21 AM EST us Elliott Ureña MD LAB BLOOD BKR ORDERABLES Final Result [facility] [address] [place] [address] * TSH with reflex (05/11/2021 9:19 AM EST) TSH 2.57 0.27 - 4.20 uIU/mL [facility] Blood 05/11/2021 9:19 AM EST 05/11/2021 9:21 AM EST Elliott Ureña MD LAB BLOOD BKR ORDERABLES Final Result [address] [address] * (ABNORMAL) Lipid panel (05/11/2021 9:19 AM EST) HDL 36 mg/dL [facility] Comment: Interpretation <40 mg/dL: Low HDL cholesterol (major risk factor for CHD) Greater than or equal to 60 mg/dL: High HDL cholesterol ( negative risk factor for CHD) HDL - cholesterol is affected by a number of factors, e.g. smoking, excerise, hormones, sex and age. CHOLESTEROL 116 0 - 240 mg/dL [facility] TRIGLYCERIDES 67 30 - 160 mg/dL [facility] LDL 67 50 - 129 mg/dL [facility] Comment: LDL levels in terms of risk for coronary heart disease: <100 mg/dL: Optimal 100-129 mg/dL: Near or above optimal 130-159 mg/dL: Borderline high 160-189 mg/dL: High >190 mg/dL: Very High CARDIAC RISK RATIO 3.2(L) 3.4 - 5.0 C [facility] Blood 05/11/2021 9:19 AM EST 05/11/2021 9:21 AM EST Elliott Ureña MD LAB BLOOD BKR ORDERABLES Final Result [address] [address] * (ABNORMAL) Comprehensive metabolic panel (05/11/2021 9:19 AM EST) SODIUM 138 133 - 146 mmol/L [facility] POTASSIUM 4.6 3.3 - 5.1 mmol/L [facility] CHLORIDE 104 96 - 108 mmol/L [facility] CO2 23 21 - 35 mmol/L [facility] BUN 33(H) 6 - 19 mg/dL [facility] CREATININE 1.30 0.5 - 1.5 mg/dL [facility] GLUCOSE 109(H) 70 - 99 mg/dL [facility] ALBUMIN 4.3 3.9 - 4.8 g/dL [facility] TOTAL PROTEIN 6.9 6.5 - 8.0 g/dL [facility] CALCIUM 9.4 8.4 - 10.3 mg/dL [facility] ALKALINE PHOSPHATASE 87 39 - 117 U/L [facility] TOTAL BILIRUBIN 0.6 0.0 - 1.2 mg/dL [facility] AST 32 0 - 37 U/L [facility] ALT 23 0 - 40 U/L [facility] GLOBULIN 2.6 1 - 4.8 g/dL [facility] EGFR 54(L) >59 mL/min/1.7 3m2 [facility] Comment:Estimated glomerular filtration rate calculated using the CKD-EPI refit equation. ANION GAP 16 10 - 20 mmol/L [facility] Blood 05/11/2021 9:19 AM EST 05/11/2021 9:21 AM EST Elliott Ureña MD LAB BLOOD BKR ORDERABLES Final Result Performing Organization Address City/State/[facility] Co de Phone Number [facility] [address] [place] [address] documented in this encounter Visit Diagnoses Diagnosis Coronary artery disease, unspecified vessel or lesion type, unspecified whether angina present, unspecified whether [place] or transplanted heart- Primary documented in this encounter Care Teams Automotive Sales Specialist Relationship Specialty Start Date End Date NiranjanElliott MD [address] [address] [email or web address] PCP - General Internal Medicine 01/30/1811/16 Marshall Jones MD [address] [place] [address] PCP - General Internal Medicine 12/01/21 10/23/22 Marshall Jones MD 95 [place] [address] PCP - General Internal Medicine 10/24/22 documented as of this encounter Additional Source Comments The information contained in this document represents components of the legal health record. It is not the complete legal health record.[facility]
--- OUTSIDE RECORDS SUMMARY | 2025-02-04 11:52 | XMS_ITS | Encounter Summary ---
Author Organization [facility] Address [address] [place] [address] [place] [address] Phone Care Team Providers Care Vice President Digital Strategist Name Role Phone Elliott Ureña MD Primary Care Provider Marshall Jones MD Primary Care Provider [phone] Marshall Jones MD Primary Care Provider [phone] Encounter Details Date Type Department Care Team (Late st Contact Info) Description 06/30/2021 Procedure Pass Non-Invasive Cardiology [address] [place] [address] Social History Tobacco Use Types Packs/Day Years [...] on file documented as of this encounter Visit Diagnoses Not on filedocumented in this encounter Care Teams Vice President Digital Strategist Relationship Specialty Start Date End Date Elliott Ureña MD 264 [facility] [address] [place] [address] [email or web address] PCP - General Internal Medicine 01/30/1811/16 Marshall Jones MD 264 [facility] [address] [place] [address] PCP - General Internal Medicine 12/01/21 10/23/22 Marshall Jones MD 95 [place] [address] PCP - General Internal Medicine 10/24/22 documented as of this encounter Additional Source Comments The information contained in this document represents components of the legal health record. It is not the complete legal health record.[facility]
--- OUTSIDE RECORDS SUMMARY | 2025-02-04 11:52 | XMS_ITS | Encounter Summary ---
Author Organization [facility] Address [address] [place] [address] [place] [address] Phone Care Team Providers Care Building And Grounds Supervisor Name Role Phone Elliott Ureña MD Primary Care Provider [phone] Marshall Jones MD Primary Care Provider [phone] Marshall Jones MD Primary Care Provider [phone] Encounter Details Date Type Department Care Team (Late st Contact Info) Description 06/30/2021 Procedure Pass [facility], [address] [address] Social History Tobacco Use Types Packs/Day Years [...] on filedocumented in this encounter Care Teams Building And Grounds Supervisor Relationship Specialty Start Date End Date Elliott Ureña MD [address] [place] [address] [address] [place] [address] [email or web address] PCP - General Internal Medicine 01/30/1811/16 Marshall Jones MD [address] [place] [address] [address] [place] [address] PCP - General Internal Medicine 12/01/21 10/23/22 Marshall Jones MD 95 [place] [address] PCP - General Internal Medicine 10/24/22 documented as of this encounter Additional Source Comments The information contained in this document represents components of the legal health record. It is not the complete legal health record.[facility]
--- OUTSIDE RECORDS SUMMARY | 2025-02-04 11:52 | XMS_ITS | Encounter Summary ---
Author Organization [facility] Address [address] [place] [address] [place] [address] Phone Care Team Providers Care Ceramic Products Sales Engineer Name Role Phone Elliott Ureña MD Primary Care Provider [phone] Marshall Jones MD Primary Care Provider [phone] Marshall Jones MD Primary Care Provider [phone] Encounter Details Date Type Department Care Team (Latest Contact Info) Description 03/28/2020 Transcribe Orders [address] [place] [address] NiranjanElliott crain MD 264 [facility] [address] [place] [address] [email or web address] Fatigue, unspecified type (Primary Dx); Elevated cholesterol; Elevated glucose Social History Tobacco Use Types Packs/Day Years [...] documented as of this encounter Results * (ABNORMAL) CBC and differential (03/28/2020 9:29 AM EST) WBC 7.58 4.00 - 11.00 K/uL [facility] Comment:Note Reference Range updates to all CBC and Differential results. RBC 5.62 3.90 - 5.69 M/uL [facility] HGB 15.1 12.4 - 17.3 g/dL [facility] Comment:Note updated Referen ce Ranges for all CBC and Differential results. HCT 47.4 37.0 - 51.0 % [facility] PLT 239 140 - 430 K/uL [facility] MCV 84.3 78.0 - 97.0 fL [facility] MCH 26.9 25.0 - 33.0 pg [facility] MCHC 31.9(L) 32.0 - 36.0 g/dL [facility] RDW 14.5 11.0 - 15.0 % [facility] MPV 9.8 8.4 - 12.8 fl [facility] NRBC 0.00 0 /100 WBCs [facility] ABSOLUTE NRBC 0.00 0 K/uL [facility] DIFF METHOD Auto [facility] NEUTS 65.9 43.0 - 75.0 % [facility] LYMPHS 21.2 18.2 - 47.4 % [facility] MONOS 7.5 4.00 - 11.00 % [facility] EOS 4.2 0.0 - 8.0 % [facility] BASOS 0.7 0.0 - 2.0 % [facility] Granulocytes, immature (%) 0.5 0.0 - 0.9 % [facility] ABSOLUTE NEUTS 4.99 1.80 - 7.70 K/uL [facility] ABSOLUTE LYMPHS 1.61 1.00 - 3.10 K/uL [facility] ABSOLUTE MONOS 0.57 0.20 - 0.80 K/uL [facility] ABSOLUTE EOS 0.32 0.00 - 0.80 K/uL [facility] ABSOLUTE BASOS 0.05 0.00 - 0.09 K/uL [facility] Granulocytes, immature 0.04 0.00 - 0.05 K/uL [facility] Blood 03/28/2020 9:29 AM EST 03/28/2020 9:35 AM EST us Elliott Ureña MD LAB BLOOD BKR ORDERABLES Final Result [facility] [address] [place] [address] * (ABNORMAL) Hemoglobin A1c (03/28/2020 9:29 AM EST) HEMOGLOBIN A1C 6.1(H) 4.3 - 5.8 % [facility] Blood 03/28/2020 9:29 AM EST 03/28/2020 9:35 AM EST Elliott Ureña MD LAB BLOOD BKR ORDERABLES Final Result [address] [address] * TSH with reflex (03/28/2020 9:29 AM EST) TSH 2.51 0.27 - 4.20 uIU/mL [facility] Blood 03/28/2020 9:29 AM EST 03/28/2020 9:35 AM EST Elliott Ureña MD LAB BLOOD BKR ORDERABLES Final Result Performing Organization Address City/[facility]/ZIP Co de Phone Number [address] [address] * (ABNORMAL) Lipid panel (03/28/2020 9:29 AM EST) HDL 41 mg/dL [facility] Comment: Interpretation <40 mg/dL: Low HDL cholesterol (major risk factor for CHD) Greater than or equal to 60 mg/dL: High HDL cholesterol ( negative risk factor for CHD) HDL - cholesterol is affected by a number of factors, e.g. smoking, excerise, hormones, sex and age. CHOLESTEROL 132 0 - 240 mg/dL [facility] TRIGLYCERIDES 74 30 - 160 mg/dL [facility] LDL 76 50 - 129 mg/dL [facility] Comment: LDL levels in terms of risk for coronary heart disease: <100 mg/dL: Optimal 100-129 mg/dL: Near or above optimal 130-159 mg/dL: Borderline high 160-189 mg/dL: High >190 mg/dL: Very High CARDIAC RISK RATIO 3.2(L) 3.4 - 5.0 C [facility] Blood 03/28/2020 9:29 AM EST 03/28/2020 9:35 AM EST Elliott Ureña MD LAB BLOOD BKR ORDERABLES Final Result [address] [address] * (ABNORMAL) Comprehensive metabolic panel (03/28/2020 9:29 AM EST) SODIUM 141 133 - 146 mmol/L [facility] POTASSIUM 4.7 3.3 - 5.1 mmol/L [facility] CHLORIDE 107 96 - 108 mmol/L [facility] CO2 25 21 - 35 mmol/L [facility] BUN 32(H) 6 - 19 mg/dL [facility] CREATININE 1.40 0.5 - 1.5 mg/dL [facility] GLUCOSE 102(H) 70 - 99 mg/dL [facility] ALBUMIN 4.2 3.9 - 4.8 g/dL [facility] TOTAL PROTEIN 7.2 6.5 - 8.0 g/dL [facility] CALCIUM 9.4 8.4 - 10.3 mg/dL [facility] ALKALINE PHOSPHATASE 74 39 - 117 U/L [facility] TOTAL BILIRUBIN 0.5 0.0 - 1.2 mg/dL [facility] AST 21 0 - 37 U/L [facility] ALT 13 0 - 40 U/L [facility] GLOBULIN 3.0 1 - 4.8 g/dL [facility] EGFR 46(L) >59 mL/min/1.7 3m2 [facility] Comment:Estimated glomerular filtration rate calculated using the CKD-EPI equation. ANION GAP 14 10 - 20 mmol/L [facility] Blood 03/28/2020 9:29 AM EST 03/28/2020 9:35 AM EST Elliott Ureña MD LAB BLOOD BKR ORDERABLES Final Result [place] [address] [place] [address] documented in this encounter Visit Diagnoses Diagnosis Fatigue, unspecified type- Primary Elevated cholesterol Pure hypercholesterolemia Elevated glucose Other abnormal glucose documented in this encounter Care Teams Ceramic Products Sales Engineer Relationship Specialty Start Date End Date Elliott Ureña MD 264 [facility] [address] [place] [address] [email or web address] PCP - General Internal Medicine 01/30/1811/16 Marshall Jones MD [address] [place] [address] & [address] [place] [address] PCP - General Internal Medicine 12/01/21 10/23/22 Marshall Jones MD 95 [place] [address] PCP - General Internal Medicine 10/24/22 documented as of this encounter Additional Source Comments The information contained in this document represents components of the legal health record. It is not the complete legal health record.[facility]
--- OUTSIDE RECORDS SUMMARY | 2025-02-04 11:52 | XMS_ITS | Encounter Summary ---
Author Organization [facility] Address [address] [place] [address] [place] [address] Phone Care Team Providers Care Photoengraver Name Role Phone Elliott Ureña MD Primary Care Provider [phone] Marshall Jones MD Primary Care Provider Marshall Jones MD Primary Care Provider [phone] Encounter Details Date Type Department Care Team (Latest Contact Info) Description 06/30/2021 Transcribe Orders Virtual Department [address] [place] [address] Marcelo Blair MD [address] [place] [address], [address] [place] [address] [email or web address] TIA (transient ischemic attack) (Primary Dx) Social History Tobacco Use Types [...] as of this encounter Plan of Treatment Pending Results Name Type Priority Associated Diagnoses Date /Time MCT (Mobile Cardiac Telemetry) Cardiac Monitors Routine TIA (transient ischemic attack) 08/17/2021 7:57 AM EDT Scheduled Orders Name Type Priority Associated Diagnoses Orde r Schedule MCT (Mobile Cardiac Telemetry) Cardiac Monitors Routine TIA (transient ischemic attack) Expected: 06/30/2021, Expires: 06/30/2022 documented as of this encounter Visit Diagnoses Diagnosis TIA (transient ischemic attack)- Primary Unspecified transient cerebral ischemia documented in this encounter Care Teams Photoengraver Relationship Specialty Start Date End Date Niranjan, Elliott Tipton MD 264 [facility] [address] [place] [address] [email or web address] PCP - General Internal Medicine 01/30/1811/16 Marshall Jones MD 264 [facility] [address] [place] [address] PCP - General Internal Medicine 12/01/21 10/23/22 Marshall Jones MD 95 [place] [address] PCP - General Internal Medicine 10/24/22 documented as of this encounter Additional Source Comments The information contained in this document represents components of the legal health record. It is not the complete legal health record.[facility]
--- OUTSIDE RECORDS SUMMARY | 2025-02-04 11:53 | XMS_ITS | Encounter Summary ---
Author Organization [facility] Address [address] [place] [address] [place] [address] Phone Care Team Providers Care Poultry Scientist Name Role Phone Elliott Ureña MD Primary Care Provider [phone] Marshall Jones MD Primary Care Provider Marshall Jones MD Primary Care Provider [phone] Reason for Referral * Outpatient Procedure - Closed Specialty Diagnoses / Procedures Referred By Zbigniew vo Referred To Contact Radiology Diagnoses Malignant neoplasm of prostate Procedures NM Bone Scan Whole Body Omega Martins MD Phone: tel: fax: Referral ID Status Reason Start Date Expiration Date Visits Re quested Visits Authorized [id number] Closed 02/14/2018 02/14/2019 2 2 Encounter Details Date Type Department Care Team (Late st Contact Info) Description 02/14/2018 Ancillary Orders Virtual Department [address] [place] [address] Omega Martins MD [address] [place] [address] [place] [address] Malignant neoplasm of prostate Social History Tobacco Use Types Packs/Day Years [...] documented as of this encounter Results * NM Bone Scan Whole Body (02/25/2018 11:36 AM EST) Anatomical Region Laterality Modality Shoulder Right, Shoulder Lef t, Arm Left, Arm Right, Elbow Left, Elbow Right, Forearm Left, Forearm Right, Wrist Right, Wrist Left, Hand Left, Hand Right, Hip Left, Hip Right, Hip Bilateral, Thigh Left, Thigh Right, Knee Left, Knee Right, Knee Bilateral, Leg Left, Leg Right, Ankle Left, Ankle Right, Foot Left, Foot Right, Pelvis Nucle ar Medicine 02/25/2018 11:5 9 AM EST Impressions 02/25/2018 12:06 PM EST Multifocal areas of activity as detailed above the vast majority of which are consistent with degenerative change. Focal increased activity evident in the centrum of an upper lumbar vertebral body which is of undetermined etiology and significance. An interval compression fracture is possible. Metastatic disease cannot be excluded. Recommend follow-up plain film correlation. S/S: Prostate carcinoma 10 years ago, pain in shoulders, knees, and chest. POS - [id number] Narrative 02/25/2018 12:06 PM EST DOSE: 24 mCi Tc-99m labeled MDP COMPARISON: MRI lumbar spine December 25, 2016 FINDINGS: Whole body imaging is obtained. There are 2 functioning kidneys. There is increased activity evident in both elbows, in the hands and wrists, and both knees, and in the right foot. Minor activity is also evident in the shoulders. These are likely all degenerative changes. Minor mottled uptake is seen in the cervical, thoracic, and lumbar spine which is likely degenerative in nature. There is however increased activity evident in a focal location in the upper lumbar spine which is of indeterminate etiology. An interval compression fracture noted, this appearance. Plain film correlation is recommended. Metastatic disease cannot be excluded. The patient has a right knee prosthesis. Procedure Note Kishore Zheng MD - 02/25/2018 DOSE: 24 mCi Tc-99m labeled MDP COMPARISON: MRI lumbar spine December 25, 2016 FINDINGS: Whole body imaging is obtained. There are 2 functioning kidneys. There is increased activity evident in both elbows, in the hands andwrists, and both knees, and in the right foot. Minor activity is alsoevident in the shoulders. These are likely all degenerative changes. Minor mottled uptake is seen in the cervical, thoracic, and lumbar spinewhich is likely degenerative in nature. There is however increasedactivity evident in a focal location in the upper lumbar spine which is ofindeterminate etiology. An interval compression fracture noted, thisappearance. Plain film correlation is recommended. Metastatic diseasecannot be excluded. The patient has a right knee prosthesis. IMPRESSION: Multifocal areas of activity as detailed above the vast majority of whichare consistent with degenerative change. Focal increased activity evidentin the centrum of an upper lumbar vertebral body which is of undeterminedetiology and significance. An interval compression fracture is possible.Metastatic disease cannot be excluded. Recommend follow-up plain filmcorrelation. S/S: Prostate carcinoma 10 years ago, pain in shoulders, knees, and chest. POS - [id number] Omega Martins MD IMG NM BONE SCAN Katelin l Result documented in this encounter Visit Diagnoses Diagnosis Malignant neoplasm of prostate Malignant neoplasm of prostate documented in this encounter Care Teams Poultry Scientist Relationship Specialty Start Date End Date Niranjan, Elliott Tipton MD 264 [facility] [address] [place] [address] [email or web address] PCP - General Internal Medicine 01/30/1811/16 Marshall Jones MD 264 [facility] [address] [place] [address] PCP - General Internal Medicine 12/01/21 10/23/22 Marshall Jones MD [address] [place] [address] PCP - General Internal Medicine 10/24/22 documented as of this encounter Additional Source Comments The information contained in this document represents components of the legal health record. It is not the complete legal health record.[facility]
--- OUTSIDE RECORDS SUMMARY | 2025-02-04 11:53 | XMS_ITS | Encounter Summary ---
Author Organization [facility] Address [address] [place] [address] [place] [address] Phone Care Team Providers Care Salvage Mechanic Name Role Phone Elliott Ureña MD Primary Care Provider [phone] Marshall Jones MD Primary Care Provider [phone] Marshall Jones MD Primary Care Provider [phone] Reason for Referral * MRI/CAT Scan - Closed Specialty Diagnoses / Procedures Referred By Zbigniew vo Referred To Contact Radiology Diagnoses Left leg weakness Back pain, unspecified back location, unspecified back pain laterality, unspecified chronicity Prostate cancer Procedures MRI Lumbar Spine Marcelo Blair MD Phone: tel: fax: mailto:[email or web address] Referral ID Status Reason Start Date Expiration Date Visits Re quested Visits Authorized [id number] Closed 06/30/2021 06/30/2022 1 1 Encounter Details Date Type Department Care Team (Latest Contact Info) Description 06/30/2021 Transcribe Orders Virtual Department [address] [place] [address] Marcelo Blair MD [address] [place] [address], [address] [place] [address] [email or web address] Left leg weakness (Primary Dx); Back pain, unspecified back location, unspecified back pain laterality, unspecified chronicity; Prostate cancer Social History Tobacco Use Types Packs/Day Years [...] documented as of this encounter Results * MRI LUMBAR SPINE (BONE) WITH AND WITHOUT CONTRAST (08/17/2021 7:30 AM EDT) Anatomical Region Laterality Modality L-spine Magnetic Resonan ce 08/17/2021 8:54 AM EDT Impressions 08/17/2021 10:36 AM EDT 1.Advanced degenerative disease of the spine, mildly progressed from 2017. Severe spinal canal stenosis at L3-L4. Severe neuroforaminal stenosis on the right at L1-L2, on the left at L2-L3, on the right at L4-L5. 2.New large right central disc extrusion at L4-L5 associated with fragmented disc. Narrative 08/17/2021 10:36 AM EDT MRI LUMBAR SPINE (BONE) WITH AND WITHOUT CONTRAST TECHNIQUE: Multi-sequence, multi-planar MRI of the lumbar spine was performed without and with intravenous contrast. COMPARISON: Lumbar spine MRI on December 25, 2016 FINDINGS: LUMBAR SPINE: Alignment and Vertebrae: Moderate scoliosis is present appreciated on the temporary help agency referral clerk view. Grade 1 anterolisthesis of L3 on L4 and L4 on L5. No compression fracture. Marrow: Heterogeneous bone marrow. Prominent endplate degenerative changes at T12-L1 Discs and Endplates: Desiccation changes of all discs. Asymmetric loss of height of multiple discs due to scoliosis. Conus: Normal. Contrast: No obvious abnormal enhancement. Soft Tissue: No prevertebral edema. Other Findings: Incompletely evaluated bilateral and multiple probable parapelvic renal cysts. Findings by level: T12-L1: Combination of scoliosis, bulging disc eccentric to the right side and hypertrophy of posterior elements results in moderate right and mild left neuroforaminal stenosis and mild spinal canal stenosis. L1-L2: Combination of scoliosis, posterior marginal osteophytes, bulging disc and hypertrophy of posterior elements results in severe right and moderate/severe left neuroforaminal stenosis and moderate spinal canal stenosis. L2-L3: Combination with scoliosis and, posterior marginal osteophytes and bulging disc eccentric to the left side and hypertrophy of posterior elements results in severe left neuroforaminal stenosis and mild spinal canal stenosis. No right neuroforaminal stenosis. L3-L4: Combination of scoliosis, posterior marginal osteophytes and bulging disc eccentric to the left side, hypertrophy of posterior elements and epidural fat results in moderate left and mild right neuroforaminal stenosis and severe spinal canal stenosis. L4-L5: New large right central disc extrusion with superior migration and associated with a 0.6 cm disc fragment which appears to be surrounded by small fluid (2:12) contacts the right L5 traversing nerve root. Combination of bulging disc, right central disc extrusion and hypertrophy of posterior elements results in severe right and moderate left neuroforaminal stenosis, with obliteration of the right lateral recess and moderate spinal canal stenosis. L5-S1: Combination of bulging disc and hypertrophy of posterior elements results in moderate bilateral neuroforaminal stenosis and mild spinal canal stenosis. Overall, there is mild progression of the multilevel degenerative changes compared to 2017. Procedure Note Sabine Canseco MD - 08/17/2021 MRI LUMBAR SPINE (BONE) WITH AND WITHOUT CONTRAST TECHNIQUE: Multi-sequence, multi-planar MRI of the lumbar spine wasperformed without and with intravenous contrast. COMPARISON: Lumbar spine MRI on December 25, 2016 FINDINGS: LUMBAR SPINE: Alignment and Vertebrae: Moderate scoliosis is present appreciated on thescout view. Grade 1 anterolisthesis of L3 on L4 and L4 on L5. Nocompression fracture. Marrow: Heterogeneous bone marrow. Prominent endplate degenerative changesat T12-L1 Discs and Endplates: Desiccation changes of all discs. Asymmetric loss ofheight of multiple discs due to scoliosis. Conus: Normal. Contrast: No obvious abnormal enhancement. Soft Tissue: No prevertebral edema. Other Findings: Incompletely evaluated bilateral and multiple probableparapelvic renal cysts. Findings by level: T12-L1: Combination of scoliosis, bulging disc eccentric to the right sideand hypertrophy of posterior elements results in moderate right and mildleft neuroforaminal stenosis and mild spinal canal stenosis. L1-L2: Combination of scoliosis, posterior marginal osteophytes, bulgingdisc and hypertrophy of posterior elements results in severe right andmoderate/severe left neuroforaminal stenosis and moderate spinal canalstenosis. L2-L3: Combination with scoliosis and, posterior marginal osteophytes andbulging disc eccentric to the left side and hypertrophy of posteriorelements results in severe left neuroforaminal stenosis and mild spinalcanal stenosis. No right neuroforaminal stenosis. L3-L4: Combination of scoliosis, posterior marginal osteophytes andbulging disc eccentric to the left side, hypertrophy of posterior elementsand epidural fat results in moderate left and mild right neuroforaminalstenosis and severe spinal canal stenosis. L4-L5: New large right central disc extrusion with superior migration andassociated with a 0.6 cm disc fragment which appears to be surrounded bysmall fluid (2:12) contacts the right L5 traversing nerve root.Combination of bulging disc, right central disc extrusion and hypertrophyof posterior elements results in severe right and moderate leftneuroforaminal stenosis, with obliteration of the right lateral recess andmoderate spinal canal stenosis. L5-S1: Combination of bulging disc and hypertrophy of posterior elementsresults in moderate bilateral neuroforaminal stenosis and mild spinalcanal stenosis. Overall, there is mild progression of the multilevel degenerative changescompared to 2017. IMPRESSION: 1.Advanced degenerative disease of the spine, mildly progressed from 2017.Severe spinal canal stenosis at L3-L4. Severe neuroforaminal stenosis onthe right at L1-L2, on the left at L2-L3, on the right at L4-L5. 2.New large right central disc extrusion at L4-L5 associated withfragmented disc. Marcelo Blair MD IMG MR XSPECIALTY Final Resu lt documented in this encounter Visit Diagnoses Diagnosis Left leg weakness- Primary Muscle weakness (generalized) Back pain, unspecified back location, unspecified back pain laterality, unspecified chronicity Prostate cancer Malignant neoplasm of prostate Left leg weakness Muscle weakness (generalized) Back pain, unspecified back location, unspecified back pain laterality, unspecified chronicity Prostate cancer Malignant neoplasm of prostate documented in this encounter Care Teams Salvage Mechanic Relationship Specialty Start Date End Date Niranjan, Elliott Tipton MD [address] [facility] [address] [place] [address] [email or web address] PCP - General Internal Medicine 01/30/1811/16 Marshall Jones MD [address] [facility] [address] [place] [address] PCP - General Internal Medicine 12/01/21 10/23/22 Marshall Jones MD [address] [place] [address] PCP - General Internal Medicine 10/24/22 documented as of this encounter Additional Source Comments The information contained in this document represents components of the legal health record. It is not the complete legal health record.[facility]
--- OUTSIDE RECORDS SUMMARY | 2025-02-04 11:53 | XMS_ITS | Encounter Summary ---
Author Organization [facility] Address [address] [place] [address] [place] [address] Phone Care Team Providers Care Credit Risk Analyst Name Role Phone Elliott Ureña MD Primary Care Provider [phone] Marshall Jones MD Primary Care Provider [phone] Marshall Jones MD Primary Care Provider [phone] Reason for Referral * Outpatient Procedure - Closed Specialty Diagnoses / Procedures Referred By Zbigniew vo Referred To Contact Diagnoses Dyspnea, unspecified type Cardiomyopathy, unspecified type Procedures Adult Echo TTE Elliott Ureña MD Phone: tel: fax: mailto:[email or web address] Referral ID Status Reason Start Date Expiration Date Visits Re quested Visits Authorized [id number] Closed 08/19/2018 08/19/2019 1 1 Encounter Details Date Type Department Care Team (Latest Contact Info) Description 08/19/2018 Transcribe Orders [facility] [address] [facility] [facility] [address], [address] [place] [address] Elliott Ureña MD [address] [facility] [address] [place], [place] [id number] [email or web address] Dyspnea, unspecified type (Primary Dx); Cardiomyopathy, unspecified type Social History Tobacco Use Types [...] on file documented as of this encounter Procedures Procedure Name Priority Date/Time Associated Diagnosis Comments TTE COMPREHENSIVE Routine 09/04/2018 11: 44 AM EDT Dyspnea, unspecified type Cardiomyopathy, unspecified type documented in this encounter Results * TTE COMPREHENSIVE (09/04/2018 11:44 AM EDT) Body Surface Area 2.1 m2 Height 175 cm Weight 95 kg Systolic BP 182 mmHg Diastolic BP 83 mmHg Interventricular Septum Thickness 13 mm Left Ventricle Internal Diameter End Diastole 40 42 - 58 mm Left Ventricle Internal Diameter End Systole 27 25 - 40 mm Left Ventricular Outflow Tract Diameter 22.0 mm LVOT VTI REST 311 mm Left Ventricular Outflow Tract Velocity 1.6 m/s Left Ventricular Outflow Tract Gradient at Rest 10 mmHg Left Ventricular Posterior Wall Thickness 10 mm Ejection Fraction 63 50 - 75 Percent Left Atrium Dimension Anterior-Posterior 35 15 - 40 mm Aortic Valve Mean Gradient 14 mmHg Aortic Valve Time Velocity Integral 510 mm Aortic Valve Peak Velocity 242.0 cm/s Aortic Valve Peak Gradient 23 mmHg Aortic Sinus Diameter 31 mm Ascending Aorta Diameter 33 mm Inferior Vena Cava Diameter 18 0.0 - 21 mm Mitral Valve Deceleration Time 335 ms Mitral Valve A Wave Speed 116.0 cm/s Mitral Valve E Wave Speed 65.0 cm/s Raw LV EF% 54 % Aortic Valve Sinus Index 1 15 20 - 32 mm Ascending Aorta Diameter 16 mm Aortic Sinus Index 15 mm Ascending Aorta Index 16 mm Left Atrial Volume 47 mL Left Atrial Volume Index 22.38 mL/m2 Anatomical Region Laterality Modality Heart Ultrasound Other Narrative 09/05/2018 5:49 PM EDT Left ventricular cavity size is normal and the left ventricular wall thickness is increased. There is mild concentric left ventricular hypertrophy. Left ventricular systolic function is normal. There are no segmental left ventricular wall motion abnormalities noted. There is no evidence of diffuse left ventricular hypokinesis. The estimated ejection fraction is 63% (Normal 50-75%). The left ventricular ejection fraction was measured by the single dimension method. Doppler profiles appear consistent with impaired left ventricular relaxation (a sign of diastolic dysfunction). Mild valvular aortic stenosis. Peak AV velocity is 2.4 m/s. The peak aortic valve gradient is 23 mmHg. The mean aortic gradient is 14 mmHg. The aortic valve area was calculated by continuity equation. SURI VTI is 2.3 cm/2. There is evidence of mild aortic regurgitation by color and spectral Doppler. There is trace to mild mitral regurgitation detected by spectral and color Doppler. There is an insufficient tricuspid regurgitation Doppler profile to calculate a right ventricular systolic pressure. Compared to a prior report from 07/04/2015, aortic regurgitation is less (mild from moderate), otherwise no significant change. Left Ventricle Left ventricular cavity size is normal and the left ventricular wall thickness is increased. There is mild concentric left ventricular hypertrophy. Left ventricular systolic function is normal. There are no segmental left ventricular wall motion abnormalities noted. There is no evidence of diffuse left ventricular hypokinesis. The estimated ejection fraction is 63% (Normal 50-75%). The left ventricular ejection fraction was measured by the single dimension method. Doppler profiles appear consistent with impaired left ventricular relaxation (a sign of diastolic dysfunction). Right Ventricle The right ventricular size is normal. No evidence of right ventricular hypertrophy. The right ventricular systolic function is normal. Left Atrium The left atrium is normal in size. The left atrial anterior-posterior dimension measures 35 mm (normal 15-40 mm). The LA volume index is 22.38 mL/m2 (normal indexed value is 16-34 mL/m2). The pulmonary venous flow profiles are normal. Right Atrium The right atrium is normal in size. The IVC is normal in size (2.1cm or less). The IVC measures 18 mm (normal <=21 mm). The IVC demonstrates normal collapse with inspiration which is consistent with normal RA pressure. Mitral Valve The mitral valve appears normal. There is no evidence of mitral stenosis. E/A ratio is 0.6. E/E' avg is 10.2. Med E' velocity is 5.3. Lat E' velocity is 7.4 cm/s. There is mild increased thickening of both mitral valve leaflets. There is trace to mild mitral regurgitation detected by spectral and color Doppler. Tricuspid Valve The tricuspid valve appears normal. There is no evidence of tricuspid stenosis. There is no evidence of significant tricuspid regurgitation by color and spectral Doppler. There is an insufficient tricuspid regurgitation Doppler profile to calculate a right ventricular systolic pressure. Aortic Valve The aortic valve appears abnormal. The aortic valve is tricuspid. There is thickening of multiple aortic leaflets. There is restricted aortic leaflet opening consistent with mild valvular aortic stenosis. Peak AV velocity is 2.4 m/s. The peak aortic valve gradient is 23 mmHg. The mean aortic gradient is 14 mmHg. The aortic valve area was calculated by continuity equation. SURI VTI is 2.3 cm/2. There is evidence of mild aortic regurgitation by color and spectral Doppler. The visualized portions of the thoracic aorta appear normal. Small amount of plaque seen in the ascending aorta. Pulmonic Valve The pulmonary valve appears normal. There is no evidence of pulmonic stenosis. There is evidence of trace pulmonary regurgitation by color and spectral Doppler. Pericardium There is no evidence of pericardial effusion. General Findings The image quality was good (2). Technique(s) used in the evaluation: Color flow Doppler and Spectral Doppler. The predominant rhythm during the study was sinus. Comparison Findings Compared to a prior report from 07/04/2015, aortic regurgitation is less (mild from moderate), otherwise no significant change. Elliott Ureña MD CV ECHO ORDERABLES Final Result documented in this encounter Visit Diagnoses Diagnosis Dyspnea, unspecified type- Primary Cardiomyopathy, unspecified type documented in this encounter Care Teams Credit Risk Analyst Relationship Specialty Start Date End Date Elliott Ureña MD [address] [facility] [address] [place] [address] [email or web address] PCP - General Internal Medicine 01/30/1811/16 Marshall Jones MD [address] [facility] [address] [place] [address] PCP - General Internal Medicine 12/01/21 10/23/22 Marshall Jones MD [address] [place] [address] PCP - General Internal Medicine 10/24/22 documented as of this encounter Additional Source Comments The information contained in this document represents components of the legal health record. It is not the complete legal health record.[facility]
--- OUTSIDE RECORDS SUMMARY | 2025-02-04 11:53 | XMS_ITS | Encounter Summary ---
Author Organization [facility] Address [address] [place] [address] [place] [address] Phone Care Team Providers Care Student Support Counselor Name Role Phone Elliott Ureña MD Primary Care Provider [phone] Marshall Jones MD Primary Care Provider [phone] Marshall Jones MD Primary Care Provider [phone] Encounter Details Date Type Department Care Team (Latest Contact Info) Description 11/16/2019 Transcribe Orders [address] [place] [address] NiranjanElliott MD [address] [facility] [address] [place] [address] [email or web address] Coronary artery disease, angina presence unspecified, unspecified vessel or lesion type, unspecified whether [place] or transplanted heart (Primary Dx); Hypertension, unspecified type Social History [...] encounter Results * (ABNORMAL) CBC and differential (11/16/2019 9:01 AM EDT) WBC 7.52 4.00 - 11.00 K/uL [facility] Comment:Note Reference Range updates to all CBC and Differential results. RBC 5.23 3.90 - 5.69 M/uL [facility] HGB 14.4 12.4 - 17.3 g/dL [facility] Comment:Note updated Referen ce Ranges for all CBC and Differential results. HCT 43.9 37.0 - 51.0 % [facility] PLT 289 140 - 430 K/uL [facility] MCV 83.9 78.0 - 97.0 fL [facility] MCH 27.5 25.0 - 33.0 pg [facility] MCHC 32.8 32.0 - 36.0 g/dL [facility] RDW 15.3(H) 11.0 - 15.0 % [facility] MPV 9.8 8.4 - 12.8 fl [facility] NRBC 0.00 0 /100 WBCs [facility] ABSOLUTE NRBC 0.00 0 K/uL [facility] DIFF METHOD Auto [facility] NEUTS 62.9 43.0 - 75.0 % [facility] LYMPHS 22.9 18.2 - 47.4 % [facility] MONOS 8.5 4.00 - 11.00 % [facility] EOS 4.4 0.0 - 8.0 % [facility] BASOS 0.9 0.0 - 2.0 % [facility] Granulocytes, immature (%) 0.4 0.0 - 0.9 % [facility] ABSOLUTE NEUTS 4.73 1.80 - 7.70 K/uL [facility] ABSOLUTE LYMPHS 1.72 1.00 - 3.10 K/uL [facility] ABSOLUTE MONOS 0.64 0.20 - 0.80 K/uL [facility] ABSOLUTE EOS 0.33 0.00 - 0.80 K/uL [facility] ABSOLUTE BASOS 0.07 0.00 - 0.09 K/uL [facility] Granulocytes, immature 0.03 0.00 - 0.05 K/uL [facility] Blood 11/16/2019 9:01 AM EDT 11/16/2019 9:04 AM EDT us Elliott Ureña MD LAB BLOOD BKR ORDERABLES Final Result [address] [address] * TSH with reflex (11/16/2019 9:01 AM EDT) TSH 2.75 0.27 - 4.20 uIU/mL [facility] Blood 11/16/2019 9:01 AM EDT 11/16/2019 9:04 AM EDT Elliott Ureña MD LAB BLOOD BKR ORDERABLES Final Result Performing Organization Address [facility] Co de Phone Number [address] [address] * (ABNORMAL) Lipid panel (11/16/2019 9:01 AM EDT) HDL 40 mg/dL [facility] Comment: Interpretation <40 mg/dL: Low HDL cholesterol (major risk factor for CHD) Greater than or equal to 60 mg/dL: High HDL cholesterol ( negative risk factor for CHD) HDL - cholesterol is affected by a number of factors, e.g. smoking, excerise, hormones, sex and age. CHOLESTEROL 128 0 - 240 mg/dL [facility] TRIGLYCERIDES 88 30 - 160 mg/dL [facility] LDL 70 50 - 129 mg/dL [facility] Comment: LDL levels in terms of risk for coronary heart disease: <100 mg/dL: Optimal 100-129 mg/dL: Near or above optimal 130-159 mg/dL: Borderline high 160-189 mg/dL: High >190 mg/dL: Very High CARDIAC RISK RATIO 3.2(L) 3.4 - 5.0 C [facility] Blood 11/16/2019 9:01 AM EDT 11/16/2019 9:04 AM EDT Elliott Ureña MD LAB BLOOD BKR ORDERABLES Final Result Performing Organization Address [facility] Co de Phone Number [address] [address] * (ABNORMAL) Comprehensive metabolic panel (11/16/2019 9:01 AM EDT) SODIUM 139 133 - 146 mmol/L [facility] POTASSIUM 4.5 3.3 - 5.1 mmol/L [facility] CHLORIDE 106 96 - 108 mmol/L [facility] CO2 22 21 - 35 mmol/L [facility] BUN 31(H) 6 - 19 mg/dL [facility] CREATININE 1.40 0.5 - 1.5 mg/dL [facility] GLUCOSE 121(H) 70 - 99 mg/dL [facility] ALBUMIN 4.4 3.9 - 4.8 g/dL [facility] TOTAL PROTEIN 7.2 6.5 - 8.0 g/dL [facility] CALCIUM 9.6 8.4 - 10.3 mg/dL [facility] ALKALINE PHOSPHATASE 76 39 - 117 U/L [facility] TOTAL BILIRUBIN 0.6 0.0 - 1.2 mg/dL [facility] AST 25 0 - 37 U/L [facility] ALT 14 0 - 40 U/L [facility] GLOBULIN 2.8 1 - 4.8 g/dL [facility] EGFR 46(L) >59 mL/min/1.7 3m2 [facility] Comment:Estimated glomerular filtration rate calculated using the CKD-EPI equation. ANION GAP 16 10 - 20 mmol/L [facility] Blood 11/16/2019 9:01 AM EDT 11/16/2019 9:04 AM EDT Elliott Ureña MD LAB BLOOD BKR ORDERABLES Final Result [facility] [address] [place] [address] documented in this encounter Visit Diagnoses Diagnosis Coronary artery disease, angina presence unspecified, unspecified vessel or lesion type, unspecified whether [place] or transplanted heart- Primary Hypertension, unspecified type documented in this encounter Care Teams Student Support Counselor Relationship Specialty Start Date End Date Elliott Ureña MD [address] [place] [address] [address] [place] [address] [email or web address] PCP - General Internal Medicine 01/30/1811/16 Marshall Jones MD [address] [facility] [address] [place] [address] PCP - General Internal Medicine 12/01/21 10/23/22 Marshall Jones MD [address] [place] [address] PCP - General Internal Medicine 10/24/22 documented as of this encounter Additional Source Comments The information contained in this document represents components of the legal health record. It is not the complete legal health record.[facility]
--- OUTSIDE RECORDS SUMMARY | 2025-02-04 11:54 | XMS_ITS | Encounter Summary ---
Author Organization [facility] Address [address] [place] [address] [place] [address] Phone Care Team Providers Care Switching Clerk Name Role Phone Coy Sharif MD Primary Care Provider [facility] Elliott Ureña MD Primary Care Provider [phone] Marshall Jones MD Primary Care Provider [phone] Marshall Jones MD Primary Care Provider [phone] Encounter Details Date Type Department Care Team (Late st Contact Info) Description 06/04/2017 Ancillary Orders Virtual Department 30 [place] [address] Marcelo Blair MD [address] [place] [address], [address] [place], [place] [id number] [email or web address] Social History Tobacco Use Types Packs/Day Years Used Date Smoking Tobacco: Never Alcohol Use Standard Drinks/Week Comments [...] on filedocumented in this encounter Care Teams Switching Clerk Relationship Specialty Start Date End Date Coy Sharif MD PCP - General Internal Medicine 05/22/16 01/29/18 Elliott Ureña MD [address] [place] [address] [address] [place] [address] [email or web address] PCP - General Internal Medicine 01/30/1811/16 Marshall Jones MD [address] [place] [address] [address] [place] [address] PCP - General Internal Medicine 12/01/21 10/23/22 Marshall Jones MD [address] [place] [address] PCP - General Internal Medicine 10/24/22 documented as of this encounter Additional Source Comments The information contained in this document represents components of the legal health record. It is not the complete legal health record.[facility]
--- OUTSIDE RECORDS SUMMARY | 2025-02-04 11:54 | XMS_ITS | Encounter Summary ---
Author Organization [facility] Address [address] [place] [address] [place] [address] Phone Care Team Providers Care Dumper [employer] Name Role Phone Coy Sharif MD Primary Care Provider [facility] Elliott Nava MD Primary Care Provider [phone] Marshall Jones MD Primary Care Provider [phone] Marshall Jones MD Primary Care Provider [phone] Encounter Details Date Type Department Care Team (Late st Contact Info) Description 01/28/2018 Ancillary Orders [facility], X-Ray - [facility] 30 [place] [address] NiranjanElliott MD [address] [facility] [address] [place] [address] [email or web address] Cough Social History Tobacco Use Types Packs/Day Years [...] documented as of this encounter Results * XR CHEST PA AND LATERAL 2 VIEWS (01/28/2018 3:12 PM EST) Anatomical Region Laterality Modality Chest Radiographic Sarita ging 01/28/2018 3:21 PM EST Impressions 01/28/2018 3:22 PM EST No acute pulmonary process or explanation for cough is seen. S/S: Cough POS - [id number] Narrative 01/28/2018 3:22 PM EST COMPARISON: Chest x-ray February 17, 2015 FINDINGS: PA and lateral imaging of the chest obtained. The heart size is normal. The lung lazaro are clear. No pneumothorax or pleural fluid is evident. The aortic contour is tortuous but is unchanged. Mild degenerative changes in the thoracic spine are again evident. Procedure Note Kishore Zheng MD - 01/28/2018 COMPARISON: Chest x-ray February 17, 2015 FINDINGS: PA and lateral imaging of the chest obtained. The heart size is normal. The lung lazaro are clear. No pneumothorax or pleural fluid is evident. The aortic contour is tortuous but is unchanged. Mild degenerative changes in the thoracic spine are again evident. IMPRESSION: No acute pulmonary process or explanation for cough is seen. S/S: Cough POS - [id number] Elliott Ureña MD IMG XR CHEST Final Result documented in this encounter Visit Diagnoses Diagnosis Cough Cough documented in this encounter Care Teams Dumper [employer] Relationship Specialty Start Date End Date Coy Sharif MD PCP - General Internal Medicine 05/22/16 01/29/18 Elliott Ureña MD [address] [address] [address] [place] [address] [email or web address] PCP - General Internal Medicine 01/30/1811/16 Marshall Jones MD [address] [facility] [address] [place] [address] PCP - General Internal Medicine 12/01/21 10/23/22 Marshall Jones MD [address] [place] [address] PCP - General Internal Medicine 10/24/22 documented as of this encounter Additional Source Comments The information contained in this document represents components of the legal health record. It is not the complete legal health record.[facility]
--- OUTSIDE RECORDS SUMMARY | 2025-02-04 11:54 | XMS_ITS | Encounter Summary ---
Author Organization [facility] Address [address] [place] [address] [address] [place] [address] Phone Care Team Providers Care Cardiac Cath Technician Name Role Phone Coy Sharif MD Primary Care Provider Carline alfonzo LowenElliott MD Primary Care Provider [phone] Marshall Jones MD Primary Care Provider [phone] Marshall Jones MD Primary Care Provider [phone] Encounter Details Date Type Department Care Team (Latest Contact Info) Description 08/07/2017 Transcribe Orders [facility] Main 30 [place] [address] Marcelo Balir MD [address] [place] [address], [address] [place], [place] [id number] [email or web address] Numbness (Primary Dx); Weakness Social History Tobacco Use Types Packs/Day Years [...] documented as of this encounter Results * Lyme Western blot only (08/07/2017 11:13 AM EDT) IGG Immunoblot Negative Negative [facility]PATH [address] IGG BANDS (KDA) p39 kDa [facility] [address] IGM Immunoblot Negative Negative [facility]PATH [address] IGM BANDS (KDA) No bands detected kDa [facility]PATH [address] Interpretation - Lyme SEE NOTE [facility]PATH [address]IOR Comment: (NOTE) Specific serologic response to B. burgdorferi infection is not detected, but cannot rule out early infection during which low or undetectable antibody levels to B. burgdorferi may be present. If clinically indicated, a new serum specimen should be submitted in 7-14 days. ADDITIONAL INFORMATION CDC criteria require >=5 bands for IgG or >=2 bands for IgM for the Immunoblot to be considered positive. Bands (e.g.,p41) may be detected in patients without Lyme disease, and patterns not meeting the CDC criteria should be interpreted with caution. Immunoblot should be ordered only on specimens that are positive or equivocal by a FDA-licensed Lyme disease antibody screening test (e.g., EIA). Blood (Blood) 08/07/2017 11: 13 AM EDT 08/07/2017 11:23 AM EDT us Marcelo Blair MD LAB BLOOD BKR ORDERABLES Fin al Result Performing Organization Address City/[facility] Co de Phone Number [facility]PATH [address] [place] [address] * Lyme screen with reflex to Western blot, blood (08/07/2017 11:13 AM EDT) [facility] Lyme AB IgG Negative Negative [facility] Lyme AB IgM Negative Negative [facility] Blood 08/07/2017 11:1 3 AM EDT 08/07/2017 11:23 AM EDT us Marcelo Blair MD LAB BLOOD BKR ORDERABLES Fin al Result Performing Organization Address [facility] Co de Phone Number [facility] [address] [place] [address] documented in this encounter Visit Diagnoses Diagnosis Numbness- Primary Disturbance of skin sensation Weakness Other malaise and fatigue documented in this encounter Care Teams Cardiac Cath Technician Relationship Specialty Start Date End Date Coy Sharif MD PCP - General Internal Medicine 05/22/16 01/29/18 Niranjan, Elliott Tipton MD 264 [facility] [address] [place] [address] [email or web address] PCP - General Internal Medicine 01/30/1811/16 Marshall Jones MD [address] [facility] [address] [place] [address] PCP - General Internal Medicine 12/01/21 10/23/22 Marshall Jones MD 95 [place] [address] PCP - General Internal Medicine 10/24/22 documented as of this encounter Additional Source Comments The information contained in this document represents components of the legal health record. It is not the complete legal health record.[facility]
--- OUTSIDE RECORDS SUMMARY | 2025-02-04 11:54 | XMS_ITS | Encounter Summary ---
Author Organization [facility] Address [address] [place] [address] [place] [address] Phone Care Team Providers Care Ms Sql Developer Name Role Phone Coy Sharif MD Primary Care Provider [facility] Elliott Ureña MD Primary Care Provider [phone] Marshall Jones MD Primary Care Provider [phone] Marshall Jones MD Primary Care Provider [phone] Encounter Details Date Type Department Care Team (Late st Contact Info) Description 05/03/2017 Ancillary Orders Virtual Department 30 [place] [address] Marcelo Blair MD [address] [place] [address], [address] [place], [place] [id number] [email or web address] Social History Tobacco Use Types Packs/Day Years [...] on filedocumented in this encounter Care Teams Ms Sql Developer Relationship Specialty Start Date End Date Coy Sharif MD PCP - General Internal Medicine 05/22/16 01/29/18 Elliott Ureña MD [address] [place] [address] [address] [place] [address] [email or web address] PCP - General Internal Medicine 01/30/1811/16 Marshall Jones MD [address] [place] [address] [address] [place] [address] PCP - General Internal Medicine 12/01/21 10/23/22 Marshall Jones MD [address] [place] [address] PCP - General Internal Medicine 10/24/22 documented as of this encounter Additional Source Comments The information contained in this document represents components of the legal health record. It is not the complete legal health record.[facility]
--- OUTSIDE RECORDS SUMMARY | 2025-02-04 11:54 | XMS_ITS | Encounter Summary ---
Author Organization [facility] Address [address] [facility] [address] [place] [address] Phone Care Team Providers Care Tin Recovery Worker Name Role Phone Coy Sharif MD Primary Care Provider Carline alfonzo LowenElliott MD Primary Care Provider [phone] Marshall Jones MD Primary Care Provider [phone] Marshall Jones MD Primary Care Provider [phone] Encounter Details Date Type Department Care Team (Late st Contact Info) Description 08/07/2017 Transcribe Orders [facility] Phleb Main 30 [place] [address] Omega Martins MD [address] [facility] [address] [place] [address] Malignant neoplasm of prostate (Primary Dx) Social History Tobacco Use Types [...] as of this encounter Results * (ABNORMAL) PSA (screening) (08/07/2017 11:13 AM EDT) PSA 5.28(H) 0 - 4.00 ng/mL [facility] Blood 08/07/2017 11:1 3 AM EDT 08/07/2017 11:22 AM EDT Omega Martins MD LAB BLOOD BKR ORDERAB LES Final Result [facility] 30 [place] [address] documented in this encounter Visit Diagnoses Diagnosis Malignant neoplasm of prostate- Primary documented in this encounter Care Teams Tin Recovery Worker Relationship Specialty Start Date End Date Coy Sharif MD PCP - General Internal Medicine 05/22/16 01/29/18 NiranjanElliott MD [address] [facility] [address] [place] [address] [email or web address] PCP - General Internal Medicine 01/30/1811/16 Marshall Jones MD [address] [address] [address] [place] [address] PCP - General Internal Medicine 12/01/21 10/23/22 Marshall Jones MD 95 [place] [address] PCP - General Internal Medicine 10/24/22 documented as of this encounter Additional Source Comments The information contained in this document represents components of the legal health record. It is not the complete legal health record.[facility]
--- OUTSIDE RECORDS SUMMARY | 2025-02-04 11:54 | XMS_ITS | Encounter Summary ---
Author Organization [facility] Address [address] [place] [address] [place] [address] Phone Care Team Providers Care Human Factors Ergonomist Name Role Phone Coy Sharif MD Primary Care Provider [facility] Elliott Nava MD Primary Care Provider [phone] Marshall Jones MD Primary Care Provider [phone] Marshall Jones MD Primary Care Provider [phone] Encounter Details Date Type Department Care Team (Late st Contact Info) Description 01/30/2017 Transcribe Orders [address] [place] [address] Omega Martins MD [address] [place] [address] [address] [place] [address] Malignant neoplasm of prostate (Primary Dx) Social [...] Procedure Name Priority Date/Time Associated Diagnosis Comments PSA, FREE AND TOTAL Routine 01/30/2017 1 0:05 AM EST Malignant neoplasm of prostate documented in this encounter Results * PSA, free and total (01/30/2017 10:05 AM EST) PSA, TOTAL 6.1 <=7.2 ng/mL [facility]PATH [address] FREE PSA 1.0 ng/mL [facility]/PATH [address] ALLAN FREE/TOT PSA RATIO 0.16 ratio Saeed [facility]/PATH FOSSIL Comment: (NOTE) When total PSA is in the range of 4.0-10.0 ng/mL, a free PSA / Total PSA ratio of < or = 0.10 indicates 49 to 65 % risk of prostate cancer depending on age; and a free PSA / total PSA ratio of > 0.25 indicates a 9 to 16% risk of prostate cancer depending on age. ADDITIONAL INFORMATION The testing method is an electrochemiluminescence assay manufactured by [employer] and performed on the Modular or Virginie system. Values obtained with different assay methods or kits may be different and cannot be used interchangeably. Test results cannot be interpreted as absolute evidence for the presence or absence of malignant disease. Blood 01/30/2017 10:0 5 AM EST 01/30/2017 1:44 PM EST us Omega Martins MD LAB BLOOD BKR ORDERAB LES Final Result [facility]/PATH [address] [place] [address] documented in this encounter Visit Diagnoses Diagnosis Malignant neoplasm of prostate- Primary documented in this encounter Care Teams Human Factors Ergonomist Relationship Specialty Start Date End Date Coy Sharif MD PCP - General Internal Medicine 05/22/16 01/29/18 NiranjanElliott MD [address] [facility] [address] [place] [address] [email or web address] PCP - General Internal Medicine 01/30/1811/16 Marshall Jones MD [address] [facility] [address] [place] [address] PCP - General Internal Medicine 12/01/21 10/23/22 Marshall Jones MD 95 [place] [address] PCP - General Internal Medicine 10/24/22 documented as of this encounter Additional Source Comments The information contained in this document represents components of the legal health record. It is not the complete legal health record.[facility]
--- OUTSIDE RECORDS SUMMARY | 2025-02-04 11:54 | XMS_ITS | Encounter Summary ---
Author Organization [facility] Address [address] [place] [address] [place] [address] Phone Care Team Providers Care Chief Operator Reformer Name Role Phone Elliott Ureña MD Primary Care Provider [phone] Marshall Jones MD Primary Care Provider [phone] Marshall Jones MD Primary Care Provider [phone] Encounter Details Date Type Department Care Team (Latest Contact Info) Description 12/11/2019 Transcribe Orders [facility] Phleb [address] [place] [address] NiranjanElliott MD 264 [facility] [address] [place] [address] [email or web address] Hypertension, unspecified type (Primary Dx) Social History Tobacco Use Types [...] documented as of this encounter Results * Hemoglobin A1c (12/11/2019 8:49 AM EDT) HEMOGLOBIN A1C 5.7 4.3 - 5.8 % [facility] Blood 12/11/2019 8:49 AM EDT 12/11/2019 8:52 AM EDT Elliott Ureña MD LAB BLOOD BKR ORDERABLES Final Result Performing Organization Address City/[facility]/ZIP Co de Phone Number [address] [address] * (ABNORMAL) Basic metabolic panel (12/11/2019 8:49 AM EDT) SODIUM 140 133 - 146 mmol/L [facility] CHLORIDE 109(H) 96 - 108 mmol/L [facility] POTASSIUM 4.3 3.3 - 5.1 mmol/L [facility] CO2 20(L) 21 - 35 mmol/L [facility] BUN 26(H) 6 - 19 mg/dL [facility] CREATININE 1.30 0.5 - 1.5 mg/dL [facility] GLUCOSE 105(H) 70 - 99 mg/dL [facility] CALCIUM 9.6 8.4 - 10.3 mg/dL [facility] EGFR 50(L) >59 mL/min/1.7 3m2 [facility] Comment:Estimated glomerular filtration rate calculated using the CKD-EPI equation. ANION GAP 15 10 - 20 mmol/L [facility] Blood 12/11/2019 8:49 AM EDT 12/11/2019 8:52 AM EDT us Elliott Ureña MD LAB BLOOD BKR ORDERABLES Final Result Performing Organization Address [facility] Co de Phone Number [address] [address] documented in this encounter Visit Diagnoses Diagnosis Hypertension, unspecified type- Primary documented in this encounter Care Teams Chief Operator Reformer Relationship Specialty Start Date End Date Elliott Ureña MD [address] [facility] [address] [place] [address] [email or web address] PCP - General Internal Medicine 01/30/1811/16 Marshall Jones MD [address] [address] [address] [place] [address] PCP - General Internal Medicine 12/01/21 10/23/22 Marshall Jones MD 95 [place] [address] PCP - General Internal Medicine 10/24/22 documented as of this encounter Additional Source Comments The information contained in this document represents components of the legal health record. It is not the complete legal health record.[facility]
--- OUTSIDE RECORDS SUMMARY | 2025-02-04 11:54 | XMS_ITS | Encounter Summary ---
Author Organization [facility] Address [address] [place] [address] [place] [address] Phone Care Team Providers Care Truck Headlight Assembler Name Role Phone Coy Sharif MD Primary Care Provider [facility] Elliott Ureña MD Primary Care Provider [phone] Marshall Jones MD Primary Care Provider [phone] Marshall Jones MD Primary Care Provider [phone] Encounter Details Date Type Department Care Team (Latest Contact Info) Description 05/01/2017 Transcribe [facility] [address] [facility] 3rd Floor, [address] [place], [place] [phone] Coy Sharif MD Coronary artery disease involving [place] coronary artery, angina presence unspecified, unspecified whether [place] or transplanted heart (Primary Dx) Social History [...] as of this encounter Visit Diagnoses Diagnosis Coronary artery disease involving stock[place] coronary artery, angina presence unspecified, unspecified whether stock[place] or transplanted heart- Primary documented in this encounter Care Teams Truck Headlight Assembler Relationship Specialty Start Date End Date Coy Sharif MD PCP - General Internal Medicine 05/22/16 01/29/18 Elliott Ureña MD [address] [place] [address] [address] [place], [place] [id number] [email or web address] PCP - General Internal Medicine 01/30/1811/16 Marshall Jones MD [address] [facility] [address] [place] [address] PCP - General Internal Medicine 12/01/21 10/23/22 Marshall Jones MD 95 [place] [address] PCP - General Internal Medicine 10/24/22 documented as of this encounter Additional Source Comments The information contained in this document represents components of the legal health record. It is not the complete legal health record.[facility]
--- OUTSIDE RECORDS SUMMARY | 2025-02-04 11:54 | XMS_ITS | Encounter Summary ---
Author Organization [facility] Address [address] [place] [address] [place] [address] Phone Care Team Providers Care Casino Runner Name Role Phone Coy Sharif MD Primary Care Provider Carline alfonzo NiranjanElliott MD Primary Care Provider [phone] Marshall Jones MD Primary Care Provider [phone] Marshall Jones MD Primary Care Provider [phone] Encounter Details Date Type Department Care Team (Late st Contact Info) Description 05/03/2017 Ancillary Orders Virtual Department [address] [place] [address] Marcelo Blair MD [address] [place] [address], [address] [place] [address] [email or web address] Renal artery stenosis of unknown cause; Carotid bruit, unspecified laterality; Transient cerebral ischemia, unspecified type Social History Tobacco Use Types [...] this encounter Results * US Carotid Duplex (Bilateral) (06/24/2017 9:05 AM EDT) Anatomical Region Laterality Modality Heart, Thoracic Vasculature, Neck Ultrasound 06/24/2017 9:10 AM EDT Addenda Addendum by Elizabeth Reyes MD on 07/12/2017 5:05 PM EDT COMPARISON: 08/09/2016. FINDINGS: Color duplex Doppler evaluation of the carotid arteries was performed. On the right one again notes a moderate amount of mixed calcified/noncalcified plaque in the bulb, proximal ICA, and proximal ECA. Peak systolic velocity in the common carotid artery was measured at 0.72 m/s and within the internal carotid artery at 1.6 m/s (versus 2.96 m/s previously) consistent with a ratio of 2.2 (previously 3.4). End-diastolic velocity in the common carotid artery was measured at 0.15 m/s and within the internal carotid artery at 0.45 m/s. Moderately severe ICA spectral broadening was apparent. On the left there is a mild to moderate amount of mixed plaque again demonstrated in the bulb. Peak systolic velocity in the common carotid artery was measured at <<< 0.97 m/s >>> and within the internal carotid artery at 0.79 m/s corresponding to ratio of 0.8. No elevated diastolic velocities were noted. No significant ICA spectral broadening was apparent. The above measurements are consistent with the presence of a 50-69% right ICA stenosis and a less than 50% left ICA stenosis. Antegrade flow was demonstrated in both vertebral arteries. There was a chronically elevated flow velocity in the right ECA, <<< currently measured at 3.0 m/s, which could contribute to bruit. >>> IMPRESSION: Chronic bilateral carotid plaquing with a 50-69% right ICA stenosis displaying interval decrease in measured systolic velocity and velocity ratios as compared with the study of 08/09/2016. No hemodynamically significant left ICA stenosis apparent. POS [id number] Edited by: Nichole Givens on 07/10/2017 4:21 PM Impressions 06/24/2017 9:14 AM EDT Chronic bilateral carotid plaquing with a 50-69% right ICA stenosis displaying interval decrease in measured systolic velocity and velocity ratios as compared with the study of 08/09/2016. No hemodynamically significant left ICA stenosis apparent. POS [id number] Narrative 06/24/2017 9:14 AM EDT COMPARISON: 08/09/2016 FINDINGS: Color duplex Doppler evaluation of the carotid arteries was performed. On the right again notes a moderate amount of mixed calcified/noncalcified plaque in the bulb, proximal ICA, and proximal ECA. Peak systolic velocity in the common carotid artery was measured 0.72 m/s and within the internal carotid artery at 1.6 m/s (versus 2.96 m/s previously) consistent with a ratio of 2.2 (previously 3.4). End-diastolic velocity in the common carotid artery was measured 0.15 m/s and within the internal carotid artery at 0.45 m/s. Moderately severe ICA spectral broadening was apparent. On the left there is a mild to moderate amount of mixed plaque again demonstrated in the bulb. Peak systolic velocity in the common carotid artery was measured 0.9 cm/s within the internal carotid artery at 0.79 m/s corresponding to ratio of 0.8. No elevated diastolic velocities were noted. No significant ICA spectral broadening was apparent. The above measurements are consistent with the presence of a 50-69% right ICA stenosis and a less than 50% left ICA stenosis. Antegrade flow was demonstrated in both vertebral arteries. There is chronically elevated flow velocity in the right ECA, early measured at 3.0 years per second, which could contribute to early. Procedure Note Elizabeth Reyes MD - 06/24/2017 COMPARISON: 08/09/2016 FINDINGS: Color duplex Doppler evaluation of the carotid arteries was performed. On the right again notes a moderate amount of mixed calcified/noncalcifiedplaque in the bulb, proximal ICA, and proximal ECA. Peak systolicvelocity in the common carotid artery was measured 0.72 m/s and within theinternal carotid artery at 1.6 m/s (versus 2.96 m/s previously) consistentwith a ratio of 2.2 (previously 3.4). End- diastolic velocity in thecommon carotid artery was measured 0.15 m/s and within the internalcarotid artery at 0.45 m/s. Moderately severe ICA spectral broadening wasapparent. On the left there is a mild to moderate amount of mixed plaque againdemonstrated in the bulb. Peak systolic velocity in the common carotidartery was measured 0.9 cm/s within the internal carotid artery at 0.79m/s corresponding to ratio of 0.8. No elevated diastolic velocities werenoted. No significant ICA spectral broadening was apparent. The above measurements are consistent with the presence of a 50-69% rightICA stenosis and a less than 50% left ICA stenosis. Antegrade flow wasdemonstrated in both vertebral arteries. There is chronically elevatedflow velocity in the right ECA, early measured at 3.0 years per second,which could contribute to early. IMPRESSION: Chronic bilateral carotid plaquing with a 50-69% right ICA stenosisdisplaying interval decrease in measured systolic velocity and velocityratios as compared with the study of 08/09/2016. No hemodynamicallysignificant left ICA stenosis apparent. POS [id number] us Marcelo Blair MD CV US NEUROVASCULAR Edited R esult - Final documented in this encounter Visit Diagnoses Diagnosis Renal artery stenosis of unknown cause Vascular disorders of kidney Carotid bruit, unspecified laterality Transient cerebral ischemia, unspecified type Renal artery stenosis of unknown cause Vascular disorders of kidney Carotid bruit, unspecified laterality Transient cerebral ischemia, unspecified type documented in this encounter Care Teams Casino Runner Relationship Specialty Start Date End Date Coy Sharif MD PCP - General Internal Medicine 05/22/16 01/29/18 NiranjanElliott MD [address] [address] & [address] [place] [address] [email or web address] PCP - General Internal Medicine 01/30/1811/16 Marshall Jones MD [address] [facility] [address] [place] [id number] PCP - General Internal Medicine 12/01/21 10/23/22 Marshall Jones MD [address] [place] [id number] PCP - General Internal Medicine 10/24/22 documented as of this encounter Additional Source Comments The information contained in this document represents components of the legal health record. It is not the complete legal health record.[facility]
--- OUTSIDE RECORDS SUMMARY | 2025-02-04 11:54 | XMS_ITS | Encounter Summary ---
Author Organization [facility] Address [address] [place] [address] Phone Care Team Providers Care Stogy Roller Name Role Phone Coy Sharif MD Primary Care Provider [facility] Elliott Nava MD Primary Care Provider [phone] Marshall Jones MD Primary Care Provider [phone] Marshall Jones MD Primary Care Provider [phone] Reason for Referral * MRI/CAT Scan - Closed Specialty Diagnoses / Procedures Referred By Contac t Referred To Contact Radiology Diagnoses Coronary artery disease involving [place] coronary artery, angina presence unspecified, unspecified whether [place] or transplanted heart Procedures NC Myocardial Perfusion Stress Single NC Myocardial Perfusion Pharmacologic Stress Multiple Coy Sharif MD Referral ID Status Reason Start Date Expiration Date Visits Re quested Visits Authorized [id number] Closed 05/01/2017 05/01/2018 1 1 Encounter Details Date Type Department Care Team (Latest Contact Info) Description 10/22/2017 Ancillary Orders [facility] [address] [place] [address] 3rd Floor, [address] [place] [address] Coy Sharif MD Coronary artery disease involving [place] coronary artery, angina presence unspecified, unspecified whether [place] or transplanted heart Social History Tobacco Use Types Packs/Day Years [...] documented as of this encounter Results * NC Myocardial Perfusion Stress Single (10/16/2017 10:01 AM EDT) Nuc Stress EF 55 % LV Systolic Volume Index 38 mL/m2 LV Diastolic Volume Index 85 mL/m2 Anatomical Region Laterality Modality Heart Ultrasound Narrative 10/23/2017 12:17 PM EDT Normal study. There is no evidence of myocardial infarction or ischemia. Normal LV size and function with no regional wall motion abnormalities. Very low likelihood of hemodynamically significant coronary artery disease. Low risk study for myocardial events or cardiac in the next two years. Nuclear Study Quality Overall image quality is good. Stress only study. Tc99m Sestamibi administered at peak exercise. There are no artifacts present. Study successfully gated. Response to Stress Exercise Stress Test Report: Reason for termination: Fatigue Summary: Resting ECG: SR, HR 73 BPM, NSSTW Functional capacity: Good Heart rate response to exercise: appropriate Blood pressure response to exercise: Baseline normotensive-appropriate response exercise Chest pain: None Arrhythmias: None Conclusion: Patient exercised for 4:51 minutes on a standard Jeff protocol achieving 89% MPHR and 7 METS. Test terminated due to fatigue. Summary: 1. EKG: Up to 1.[address] depressions in leads II, III, aVF during peak exercise, then changing to horizontal ST waves in recovery, resolving by 8 minutes into recovery. 2. Symptoms: No exertional chest pain or symptoms concerning for angina 3. Exercise physiology: Normal heart rate and BP response to exercise. Max HR 125 BPM with normal HR recovery. Max BP 192/80 from baseline BP of 140/70. Good functional capacity for age noted. 4. Arrhythmia: None Conclusion: Abnormal ETT portion of test. EKG changes that could be suggestive of ischemia. No exertional chest pain or symptoms concerning for angina during testing. Vital signs at baseline at time of discharge from the lab. Nuclear images to follow. EKG reviewed with Dr. Schreiber. Deidra Landeros, C ARCHITECT, MPH . Stress Function Comments Post-stress ejection fraction was 55%. Stress end diastolic index: 85 mL/m2. Stress end systolic index: 38 mL/m2. Nuclear Prior Study There is no prior study available for comparison. Perfusion Scoring Stress Summed Score: 0 Percent Normal: 0.00% The left ventricular perfusion is normal. us Coy Sharif MD CV NM CARDIAC Final Result documented in this encounter Visit Diagnoses Diagnosis Coronary artery disease involving [place] coronary artery, angina presence unspecified, unspecified whether [place] or transplanted heart Coronary artery disease involving [place] coronary artery, angina presence unspecified, unspecified whether [place] or transplanted heart documented in this encounter Care Teams Stogy Roller Relationship Specialty Start Date End Date Coy Sharif MD PCP - General Internal Medicine 05/22/16 01/29/18 Niranjan, Elliott Tipton MD [address] [facility] [place] [address] [place] [address] [email or web address] PCP - General Internal Medicine 01/30/1811/16 Marshall Jones MD [address] [facility] [place] [address] [place] [address] PCP - General Internal Medicine 12/01/21 10/23/22 Marshall Jones MD [address] [place] [id number] PCP - General Internal Medicine 10/24/22 documented as of this encounter Additional Source Comments The information contained in this document represents components of the legal health record. It is not the complete legal health record.[facility]
--- OUTSIDE RECORDS SUMMARY | 2025-02-04 11:55 | XMS_ITS | Clinical Summary ---
Author Organization [facility] Address [address] [place] [address] [place] [address] Phone Care Team Providers Care Fac Engineer Name Role Phone Marshall Jones MD Primary Care Provider [phone] Allergies No known active allergies Medications atorvastatin (LIPITOR) 20 MG tablet ONE DAILY 11 05/10/2016 Active lisinopril (PRINIVIL,ZESTRI L) 10 MG tablet Take 10 mg by mouth 2 (two) times a day. 2 02/24/2016 Active LORazepam (ATIVAN) 1 MG tablet 1 MG PO QHS 5 04/03/2016 Active metoprolol succinate (TOPROL-XL) 25 MG 24 hr tablet Take 25 mg by mouth daily. 11 05/10/2016 Active DULoxetine (CYMBALTA) 20 MG capsule 04/28/2018 Active aspirin 81 MG EC tablet daily. Active valsartan (DIOVAN) 160 MG tablet 02/03/2020 Active amLODIPine (NORVASC) 10 MG tablet Take 10 mg by mouth daily. Active finasteride (PROSCAR) 5 mg tablet Take 5 mg by mouth daily. 06/07/2021 Active clopidogrel (PLAVIX) 75 mg tablet Take 75 mg by mouth daily. 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 Not on ivana e 07/13/2022 Are you concerned about learning? Not on file 07/13/2022 No 07/13/2022 No 07/13/2022 Digital Access Answer Date Recorded No 08/13/2022 No 08/13/2022 Reliable internet access at home? Not on file 08/13/2022 Device with a working camera? Not on file Sex and Gender Information Value Date Recorded Sex Assigned at Not on file Legal Sex Male 4:36 AM EST Gender Identity Not on file Sexual Orientation Not on file Last Filed Vital Signs Vital Sign Reading Time Taken Comments Blood Pressure 137/80 09/08/2021 10:11 PM EDT Pulse 74 09/08/2021 10:11 PM EDT Temperature 36.2 C (97.1 F) 09/08/2021 10:11 PM EDT Respiratory Rate 18 09/08/2021 10:11 PM EDT Oxygen Saturation 96% 09/08/2021 10:11 PM EDT Inhaled Oxygen Concentration - - Weight 85.7 kg (189 lb) 08/10/2021 1:06 PM EDT Height 172.7 cm (5' 8 ) 08/10/2021 1:06 PM EDT Body Mass Index 28.74 08/10/2021 1:06 PM EDT Plan of Treatment Health Maintenance Due Date Last Done Comments Adult Td,Tdap Booster 1936 DEPRESSION SCREENING 1948 PNEUMOCOCCAL VACCINES (50+ years) (1 of 1 - PCV) 1986 ZOSTER VACCINES (1 of 2) 1986 RSV VACCINE (1 - 1-dose 75+ series) 09/14/2011 CREATININE LEVEL 05/11/2022 05/11/2021, , 03/28/2020, Additional history exists POTASSIUM LEVEL 05/11/2022 05/11/2021, 11/16, 03/28/2020, Additional history exists INFLUENZA VACCINE (#1) 2024 COVID-19 VACCINE ( season) 2024 05/26/2020, 04/28/2020 HEPATITIS A VACCINES Aged Out No long er eligible based on patient's age to complete this topic HIB VACCINES Aged Out No longer eligi ble based on patient's age to complete this topic IPV VACCINES Aged Out No longer eligi ble based on patient's age to complete this topic MENINGOCOCCAL VACCINES (ACWY) Aged Out No longer eligible based on patient's age to complete this topic MENINGOCOCCAL VACCINES (B) Aged Out N o longer eligible based on patient's age to complete this topic Medical Devices Not on file Procedures Procedure Name Priority Date/Time Associated Diagnosis Comments COMPREHENSIVE METABOLIC PANEL (CMP) Routine 05/11/2021 9:19 AM EST Coronary artery disease, unspecified vessel or lesion type, unspecified whether angina present, unspecified whether [place] or transplanted heart from Last 3 Months or Most Recently Relevant to Health Maintenance Results * (ABNORMAL) Comprehensive metabolic panel (05/11/2021 9:19 AM EST) SODIUM 138 133 - 146 mmol/L [facility] POTASSIUM 4.6 3.3 - 5.1 mmol/L [facility] CHLORIDE 104 96 - 108 mmol/L [facility] CO2 23 21 - 35 mmol/L [facility] BUN 33(H) 6 - 19 mg/dL [facility] CREATININE 1.30 0.5 - 1.5 mg/dL [facility] GLUCOSE 109(H) 70 - 99 mg/dL [facility] ALBUMIN 4.3 3.9 - 4.8 g/dL [facility] TOTAL PROTEIN 6.9 6.5 - 8.0 g/dL [facility] CALCIUM 9.4 8.4 - 10.3 mg/dL [facility] ALKALINE PHOSPHATASE 87 39 - 117 U/L [facility] TOTAL BILIRUBIN 0.6 0.0 - 1.2 mg/dL [facility] AST 32 0 - 37 U/L [facility] ALT 23 0 - 40 U/L [facility] GLOBULIN 2.6 1 - 4.8 g/dL [facility] EGFR 54(L) >59 mL/min/1.7 3m2 [facility] Comment:Estimated glomerular filtration rate calculated using the CKD-EPI refit equation. ANION GAP 16 10 - 20 mmol/L [facility] Blood 05/11/2021 9:19 AM EST 05/11/2021 9:21 AM EST Elliott Ureña MD LAB BLOOD BKR ORDERABLES Final Result [facility] [address] [place] [address] from Last 3 Months or Most Recently Relevant to Health Maintenance Insurance [place] PART A & [place] [id number] [facility] MEDICARE SUPPLEMENT MEDICARE PART A & B FOR LIFE MEDICARE SUPPLEMENT [facility] Address: [address] [address] MEDICARE PART A & B FOR LIFE MEDICARE SUPPLEMENT MEDICARE PART A & B [employer] MEDICARE SUPPLEMENT [facility] Address: [address] [address] MEDICARE PART A & B [employer] MEDICARE SUPPLEMENT MEDICARE PART A & B Member Subscriber Plan / Payer (Ef fective 2001-Present) Name:Elliott Jarvis Member ID:[id number] Relation to Subscriber:Self Name:ELLIOTT JARVIS Subscriber ID:[id number] Payer ID:[id number] Group ID:Not on file Type:Medicare Address: [facility] [facility].[address] [place] [phone] [employer] [facility] MEDICARE SUPPLEMENT MEDICARE PART A & B FOR LIFE MEDICARE SUPPLEMENT MEDICARE PART A & B FOR LIFE MEDICARE SUPPLEMENT MEDICARE PART A & B FOR LIFE MEDICARE SUPPLEMENT [facility] Address: [address] [place] [phone] MEDICARE PART A & B FOR LIFE MEDICARE SUPPLEMENT Care Teams Fac Engineer Relationship Specialty Start Date End Date Lysse, Marshall, MD [address] [place] [address] PCP - General Internal Medicine 10/24/22 Additional Source Comments The information contained in this document represents components of the legal health record. It is not the complete legal health record.[facility]
--- OUTSIDE RECORDS SUMMARY | 2025-02-04 11:55 | XMS_ITS | Encounter Summary ---
Author Organization [facility] Address [address] [place] [address] [address] [place] [address] Phone Care Team Providers Care Color Receiver Name Role Phone Coy Sharif MD Primary Care Provider [facility] Elliott Nava MD Primary Care Provider [phone] Marshall Jones MD Primary Care Provider [phone] Marshall Jones MD Primary Care Provider [phone] Encounter Details Date Type Department Care Team (Latest Contact Info) Description 08/07/2017 Transcribe Orders [facility] Phleb Main [address] [place] [address] Coy Sharif MD Fatigue, unspecified type (Primary Dx); Borderline high blood pressure; Malignant neoplasm of prostate; Numbness; Weakness Social History Tobacco Use Types Packs/Day [...] Procedure Name Priority Date/Time Associated Diagnosis Comments LYME WESTERN BLOT ONLY Routine 8 11:13 AM EDT Numbness Weakness LYME SCREEN WITH REFLEX TO WESTERN BLOT, BLOOD Routine 08/07/2017 11:13 AM EDT Numbness Weakness COMPREHENSIVE METABOLIC PANEL (CMP) Routine 08/07/2017 11:13 AM EDT Fatigue, unspecified type Borderline high blood pressure SEDIMENTATION RATE (ESR) Routine 08/07/2017 11:13 AM EDT Fatigue, unspecified type Borderline high blood pressure C-REACTIVE PROTEIN (CRP) Routine 08/07/2017 11:13 AM EDT Fatigue, unspecified type Borderline high blood pressure PSA (SCREENING) Routine 08/07/2017 11:13 AM EDT Malignant neoplasm of prostate CREATINE KINASE (CK) Routine 08/07/2017 11:13 AM EDT Fatigue, unspecified type Borderline high blood pressure documented in this encounter Results * Lyme Western blot only (08/07/2017 11:13 AM EDT) IGG Immunoblot Negative Negative [facility] MED/PATH [address] DR IGG BANDS (KDA) p39 kDa [facility] MED/PATH SUPERIOR IGM Immunoblot Negative Negative [facility] MED/PATH [address] DR IGM BANDS (KDA) No bands detected kDa [facility]PATH [address] DR Interpretation - Lyme SEE NOTE [facility]PATH [facility] Comment: (NOTE) Specific [...] 13 AM EDT 08/07/2017 11:23 AM EDT Marcelo Blair MD LAB BLOOD BKR ORDERABLES Fin al Result [facility] [address] [place] [address] * Lyme screen with reflex to Western blot, blood (08/07/2017 11:13 AM EDT) Lyme AB IgG Negative Negative [facility] Lyme AB IgM Negative Negative [facility] Blood 08/07/2017 11:1 3 AM EDT 08/07/2017 11:23 AM EDT us Marcelo Blair MD LAB BLOOD BKR ORDERABLES Fin al Result Performing Organization Address [facility] Co de Phone Number [address] [address] * (ABNORMAL) PSA (screening) (08/07/2017 11:13 AM EDT) PSA 5.28(H) 0 - 4.00 ng/mL [facility] Blood 08/07/2017 11:1 3 AM EDT 08/07/2017 11:22 AM EDT us Omega Martins MD LAB BLOOD BKR ORDERAB LES Final Result Performing Organization Address [facility] Co de Phone Number [address] [address] * (ABNORMAL) Sedimentation rate (ESR) (08/07/2017 11:13 AM EDT) ESR 22(H) 0 - 20 mm/h [facility] Blood 08/07/2017 11:1 3 AM EDT 08/07/2017 11:23 AM EDT us Coy Sharif MD LAB BLOOD BKR ORDERABLES Final Result Performing Organization Address [facility]/ZIP Co de Phone Number [address] [address] * C-Reactive Protein (08/07/2017 11:13 AM EDT) Pathologist [facility] C REACTIVE PROTEIN 1.0 0.0 - 4.0 mg/L [facility] Comment:New Reference Range and Measuring Units effective 07/31/17. Blood 08/07/2017 11:1 3 AM EDT 08/07/2017 11:23 AM EDT Coy Sharif MD LAB BLOOD BKR ORDERABLES Final Result [address] [address] * CPK (creatine kinase) (08/07/2017 11:13 AM EDT) Pathologist [facility] CREATINE KINASE 167 35 - 232 U/L [facility] Blood 08/07/2017 11:1 3 AM EDT 08/07/2017 11:23 AM EDT Coy Sharif MD LAB BLOOD BKR ORDERABLES Final Result Performing Organization Address [facility] Co de Phone Number [address] [address] * (ABNORMAL) Comprehensive metabolic panel (08/07/2017 11:13 AM EDT) Pathologist [facility] SODIUM 143 133 - 146 mmol/L [facility] POTASSIUM 4.2 3.3 - 5.1 mmol/L [facility] CHLORIDE 103 96 - 108 mmol/L [facility] CO2 26 21 - 35 mmol/L [facility] BUN 31(H) 6 - 19 mg/dL [facility] CREATININE 1.50 0.5 - 1.5 mg/dL [facility] GLUCOSE 87 70 - 99 mg/dL [facility] ALBUMIN 4.2 3.9 - 4.8 g/dL [facility] TOTAL PROTEIN 7.7 6.5 - 8.0 g/dL [facility] CALCIUM 9.7 8.4 - 10.3 mg/dL [facility] ALKALINE PHOSPHATASE 73 39 - 117 U/L [facility] TOTAL BILIRUBIN 0.4 0.0 - 1.2 mg/dL [facility] AST 19 0 - 37 U/L [facility] ALT 19 0 - 40 U/L [facility] GLOBULIN 3.5 1 - 4.8 g/dL [facility] EGFR 43(L) >59 mL/min/1.7 3m2 [facility] Comment:If patient is black, multiply result by 1.159. The eGFR calculation has changed from the MDRD equation to the CKD-EPI equation as of May 21, 2017. ANION GAP 18 10 - 20 mmol/L [facility] Blood 08/07/2017 11:1 3 AM EDT 08/07/2017 11:23 AM EDT us Coy Sharif MD LAB BLOOD BKR ORDERABLES Final Result Performing Organization Address City/State/[facility] Co de Phone Number [facility] [address] [place] [address] documented in this encounter Visit Diagnoses Diagnosis Fatigue, unspecified type- Primary Borderline high blood pressure Elevated blood pressure reading without diagnosis of hypertension Malignant neoplasm of prostate Numbness Disturbance of skin sensation Weakness Other malaise and fatigue documented in this encounter Care Teams Color Receiver Relationship Specialty Start Date End Date Coy Sharif MD PCP - General Internal Medicine 05/22/16 01/29/18 NiranjanElliott MD [address] [facility] [address] [place] [address] [email or web address] PCP - General Internal Medicine 01/30/1811/16 Marshall Jones MD [address] [facility] [address] [place] [address] PCP - General Internal Medicine 12/01/21 10/23/22 Marshall Jones MD [address] [place] [address] PCP - General Internal Medicine 10/24/22 documented as of this encounter Additional Source Comments The information contained in this document represents components of the legal health record. It is not the complete legal health record.[facility]
--- OUTSIDE RECORDS SUMMARY | 2025-02-04 11:55 | XMS_ITS | Encounter Summary ---
Author Organization [facility] Address [address] [place] [address] [address] [place] [address] Phone Care Team Providers Care Sfdc Architect Name Role Phone Coy Sharif MD [facility] Elliott Ure[facility] MD Primary Care Provider [phone] Marshall Jones MD Primary Care Provider [phone] Marshall Jones MD Primary Care Provider [phone] Encounter Details Date Type Department Care Team (Latest Contact Info) Description 10/14/2017 Transcribe Orders [facility] Phleb [address] [place] [address] Coy Sharif MD Hypertension, unspecified type (Primary Dx); Hyperlipidemia, unspecified hyperlipidemia type; Fatigue, unspecified type Social History Tobacco Use Types [...] as of this encounter Results * CBC (10/14/2017 8:25 AM EDT) WBC 7.33 3.40 - 11.20 K/uL [facility] RBC 5.27 4.50 - 5.50 M/uL [facility] HGB 14.4 13.0 - 17.0 g/dL [facility] HCT 44.9 40.0 - 51.0 % [facility] PLT 220 130 - 400 K/uL [facility] MCV 85.2 79.0 - 98.0 fL [facility] MCH 27.3 27.0 - 34.8 pg [facility] MCHC 32.1 31.5 - 36.0 g/dL [facility] RDW 14.0 10.8 - 14.6 % [facility] MPV 9.9 9.4 - 12.4 fl [facility] NRBC 0.00 /100 WBCs [facility] ABSOLUTE NRBC 0.00 K/uL [facility] Blood 10/14/2017 8:25 AM EDT 10/14/2017 8:28 AM EDT us Coy Sharif MD LAB BLOOD BKR ORDERABLES Final Result Performing Organization Address [facility] Co de Phone Number [address] [address] * (ABNORMAL) Lipid panel (10/14/2017 8:25 AM EDT) HDL 42 mg/dL [facility] Comment: Interpretation: Risk Level Males Decreased >45 mg/dL Average 40-45 mg/dL Increased <40 mg/dL CHOLESTEROL 133 0 - 240 mg/dL [facility] TRIGLYCERIDES 121 30 - 160 mg/dL [facility] LDL 67 50 - 129 mg/dL [facility] Comment: LDL levels in terms of risk for coronary heart disease: <100 mg/dL: Optimal 100-129 mg/dL: Near or above optimal 130-159 mg/dL: Borderline high 160-189 mg/dL: High >190 mg/dL: Very High CARDIAC RISK RATIO 3.2(L) 3.4 - 5.0 C [facility] Blood 10/14/2017 8:25 AM EDT 10/14/2017 8:28 AM EDT us Coy Sharif MD LAB BLOOD BKR ORDERABLES Final Result Performing Organization Address [facility] Co de Phone Number [address] [address] * (ABNORMAL) Comprehensive metabolic panel (10/14/2017 8:25 AM EDT) SODIUM 142 133 - 146 mmol/L [facility] POTASSIUM 4.9 3.3 - 5.1 mmol/L [facility] CHLORIDE 106 96 - 108 mmol/L [facility] CO2 24 21 - 35 mmol/L [facility] BUN 29(H) 6 - 19 mg/dL [facility] CREATININE 1.40 0.5 - 1.5 mg/dL [facility] GLUCOSE 110(H) 70 - 99 mg/dL [facility] ALBUMIN 4.1 3.9 - 4.8 g/dL [facility] TOTAL PROTEIN 7.2 6.5 - 8.0 g/dL [facility] CALCIUM 9.7 8.4 - 10.3 mg/dL [facility] ALKALINE PHOSPHATASE 69 39 - 117 U/L [facility] TOTAL BILIRUBIN 0.4 0.0 - 1.2 mg/dL [facility] AST 22 0 - 37 U/L [facility] ALT 19 0 - 40 U/L [facility] GLOBULIN 3.1 1 - 4.8 g/dL [facility] EGFR 47(L) >59 mL/min/1.7 3m2 [facility] Comment:If patient is black, multiply result by 1.159. Estimated glomerular filtration rate calculated using the CKD-EPI equation. ANION GAP 17 10 - 20 mmol/L [facility] Blood 10/14/2017 8:25 AM EDT 10/14/2017 8:28 AM EDT us Coy Sharif MD LAB BLOOD BKR ORDERABLES Final Result [facility] [address] [place] [address] documented in this encounter Visit Diagnoses Diagnosis Hypertension, unspecified type- Primary Hyperlipidemia, unspecified hyperlipidemia type Fatigue, unspecified type documented in this encounter Care Teams Sfdc Architect Relationship Specialty Start Date End Date Coy Sharif MD PCP - General Internal Medicine 05/22/16 01/29/18 Niranjan, Elliott Tipton MD [address] [place] [address] [address] [place] [address] [email or web address] PCP - General Internal Medicine 01/30/1811/16 Marshall Jones MD 264 [facility] [address] [place] [address] PCP - General Internal Medicine 12/01/21 10/23/22 Marshall Jones MD [address] [place] [address] PCP - General Internal Medicine 10/24/22 documented as of this encounter Additional Source Comments The information contained in this document represents components of the legal health record. It is not the complete legal health record.[facility]
== END 2025-02-04 09:52 | disposition home or self-care (01) ==
LOC: HO.HUSH 09:13
PROVIDERS: PCP Internal Medicine; Visit Provider Urology
DX: C61 Malignant neoplasm of prostate (principal); N40.1 Benign prostatic hyperplasia with lower urinary tract symptoms; R35.1 Nocturia
CPT/HCPCS: 99213; G2211